=== PATIENT | male | born 1960 | race Caucasian/White ===

== ENCOUNTER 2023-07-11 08:30 | Outpatient (OUT) | payer MEDICARE, SELFPAY ==
--- NOTE | 2023-07-11 08:37 | XR_ITS ---
The [address] [address] Patient Name: ERI KLEIN MRN: [id number] date: 1960 Sex: M Assigned Patient Location: RAD Current Patient Location: [facility] Accession/Order Number: [id number] Exam Date: 07/11/2023 08:45 Report Date: 07/11/2023 09:12 At the request of: DENYS KLEIN Procedure: XR lumbar spine 6V w bending EXAMINATION: XR lumbar spine 6V w bending HISTORY: Spondylosis Of Lumbar Spine, Low Back Pain COMPARISON: 01/25/2022 FINDINGS: BONES: Neutral projection demonstrates normal alignment of the lumbar vertebral bodies with no acute fracture or spondylolisthesis. Moderate diffuse degenerative spondylosis and facet osteoarthropathy DISC SPACES: Multilevel disc space narrowing most significant L4-5 and L5-S1 with endplate sclerosis PARASPINOUS: Negative. No paraspinous abnormality is seen. OTHER: No transient spondylolisthesis with flexion or extension XR/XR lumbar spine 6V w bending IMPRESSION: Moderate degenerative changes with no dynamic instability Electronically authenticated by: ERI ROBERTSON Date: 07/11/2023 09:12
== END 2023-07-11 08:31 | disposition home or self-care (01) ==
PROVIDERS: Visit Provider Internal Medicine
DX: M47.816 Spondylosis without myelopathy or radiculopathy, lumbar region (principal); M54.50 Low back pain, unspecified
CPT/HCPCS: 72114

== ENCOUNTER 2023-07-27 06:32 | Outpatient (OUT) | payer MEDICARE, SELFPAY ==
--- NOTE | 2023-07-27 06:34 | MR_ITS ---
[address] [address] Patient Name: ERI KLEIN MRN: [id number] date: 1960 Sex: M Assigned Patient Location: MRI Current Patient Location: MRI Accession/Order Number: [id number] Exam Date: 07/27/2023 06:45 Report Date: 07/27/2023 09:30 At the request of: DENYS KLEIN Procedure: MR lumbar spine wo con EXAMINATION: MR lumbar spine wo con HISTORY: Low Back Pain, Spondylosis Of Lumbar Spine COMPARISON: No relevant comparison available. TECHNIQUE: A variety of imaging planes and parameters were utilized for visualization of suspected pathology. FINDINGS: For the purposes of numbering, sagittal T2 image # 8 extends from the T11 vertebral body superiorly to the S3 level inferiorly. PARASPINAL AREA: Normal with no visible mass. BONES: Normal alignment with no acute fracture or spondylolisthesis. Moderate degenerative spondylosis. Modic 1 changes inferior L4 superior L5 vertebral bodies. Area of signal abnormality in the T11 likely a hemangioma CORD/CAUDA EQUINA: Normal caliber, contour, and signal intensity. DISC LEVELS: 12-L1: No significant disc/facet abnormality, spinal stenosis, or foraminal stenosis. L1-L2: No significant disc/facet abnormality, spinal stenosis, or foraminal stenosis. L2-L3: Disc desiccation. Mild broad-based disc protrusion. Moderate endplate hypertrophy. No central or foraminal stenosis L3-L4: Disc space narrowing with disc desiccation. Mild diffuse disc/osteophyte complex and facet osteoarthropathy. Regional narrowing of the central canal. Mild bilateral foraminal stenosis, right greater than left L4-L5: Moderate disc space narrowing right greater than left with endplate sclerosis and Modic change. Mild to moderate diffuse disc/osteophyte complex and facet osteoarthropathy. Ligamentum flavum hypertrophy. No central canal stenosis. Moderate bilateral foraminal stenosis L5-S1: Disc desiccation. Mild posterior disc protrusion and facet osteoarthropathy. No central canal or right foraminal stenosis. Moderate narrowing of the left neural foramen MR/MR lumbar spine wo con IMPRESSION: Moderate degenerative changes resulting in central and foraminal stenosis at multiple levels as detailed above Electronically authenticated by: ERI ROBERTSON Date: 07/27/2023 09:30
--- OUTSIDE RECORDS SUMMARY | 2023-07-27 06:35 | XMS_ITS | CCD ---
Author Organization [facility] Care Team Providers Care Motion Picture Cameraman Name Role Phone Casey Klein Unavailable Unavailable Unavailable DR CASEY KLEIN Primary Care Unavailable SHERIF, DR MCFARLANE Admitting Unavailable SHERIF, DR MCFARLANE Attending Unavailable SHERIF, DR MCFARLANE Consulting Unavailable SHERIF, DR MCFARLANE Admitting Unavailable SHERIF, DR MCFARLANE Attending Unavailable SHERIF, DR MCFARLANE Consulting Unavailable SHERIF, DR MCFARLANE Primary Care Unavailable TISHA, DR RENEE Taylor Consulting Unavailable Casey Klein Unavailable Casey Klein DO Primary Care Provider TREMAINE DUQUE Attending Unavailable CASEY KLEIN Primary Care Unavailable Allergies Allergy Classification Reported Allergen(s) Allergy Type Date of Onset Reaction(s) Facility (3 sources) shellfish, unspecified [facility]: (2 sources) Shellfish; Translations: [SHELLFISH DERIVED] Propensity to adverse reactions to food (disorder) 4 Anaphylaxis [facility] 3 Repository Medications Current Medications Medication Drug Class(es) Dates Sig (Normalized) Sig (Original) amLODIPine 5 mg oral tablet (8 sources) Dihydropyridine Calcium Channel Raisa Start: 06-15-2023 take 5 mg by mouth once daily Amlodipine Active 5 MG PO Daily June 15, 2023 12:00am take 1 tablet by mouth once christoph y amLODIPine (Norvasc) 5 mg tablet Take 1 tablet (5 mg) by mouth once daily. 0 Active aspirin 81 mg delayed release oral tablet (6 sources) Platelet Aggregation Inhibitor, Nonsteroidal Anti-inflammatory Drug Start: 06-18-2023 take 81 mg by mouth once daily Aspirin Active 81 MG PO Daily June 18, 2023 12:00am Start: 04-21-2019 End: 06-15-2023 take 81 mg by mouth once daily Aspirin Discontinued 81 MG PO Daily April 21, 2019 12:00am June 15, 2023 4:17pm take 1 tablet by candace th twice daily aspirin 81 mg EC tablet Take 1 tablet (81 mg) by mouth 2 times a day. 0 Active atorvastatin (11 sources) HMG-CoA Reductase Inhibitor Start: 06-04-2023 take 1 tablet by mouth once daily in the evening Atorvastatin Active 0 .ROUTE .COMPLEX 90 June 04, 2023 1:33pm TAKE 1 TABLET BY MOUTH EVERY EVENING Start: 03-19-2020 End: 06-04-2023 take 1 tablet by mouth once daily at bedtime Atorvastatin (Lipitor) 40 mg tablet Discontinued 40 MG PO Daily at bedtime March 19, 2020 1:00am June 04, 2023 1:33pm Start: 04-21-2019 End: 03-19-2020 take 20 mg by mouth once daily Atorvastatin Discontinu ed 20 MG PO Daily April 21, 2019 12:00am March 19, 2020 12:03pm cefdinir 300 mg oral capsule (2 sources) Cephalosporin Antibacterial Start: 03-05-2023 Cefdinir 300 MG as directed Orally bid for 7 days Feb, Active [id number] 0.3 ml EPINEPHrine 1 mg/ml auto-injector (2 sources) alpha-Adrenergic Agonist, beta-Adrenergic Agonist, Catecholamine Start: 09-01-2021 EPINEPHrine (Auvi-Q) 0.3 mg/0.3 mL injection syringe INJECT NEEDED FOR SEVERE ALLERGIC REACTION INCLUDING ANAPHYLAXIS DIRECTED 0 09/01/2021 Active multivit-min/ferrou s fumarate (MULTI VITAMIN ORAL) (1 source) take 1 tablet by mouth once daily multivit-min/fransico us fumarate (MULTI VITAMIN ORAL) Take 1 tablet by mouth once daily. 0 Active Multivitamin (Daily Multi-Vitamin) tablet (1 source) Start: 06-18-2023 take 1 tablet by mouth once daily Multivitamin (Daily Multi-Vitamin) tablet Active 1 TAB PO Daily June 18, 2023 12:00am Completed/Discontinued Medications Medication Drug Class(es) Dates Sig (Normalized) Sig (Original) plenvu 140 gm solution reconstituted (4 sources) Osmotic Laxative, Vitamin C Start: 03-21-2019 Plenvu 140 GM DOSE 1 AT 4 AND DOSE 2 POUCH A AND B AT 11 PM Orally bid for 1 days [id number] PCN: [id number] GROUP:[id number] ID:[id number] Mar, Not-Taking/PRN Start: 03-21-2019 Plenvu 140 GM DOSE 1 AT 4 AND DOSE 2 POUCH A AND B AT 11 PM Orally bid for 1 days BIN:[id number] PCN: [id number] GROUP:[id number] ID:[id number] Mar, Not-Taking benzonatate 100 mg oral capsule (4 sources) Non-narcotic Antitussive Start: 06-15-2023 End: 06-18-2023 take 100 mg by mouth three times daily Benzonatate Discontinued 100 MG PO Three times daily June 15, 2023 12:00am June 18, 2023 10:33am Start: 02-18-2023 take 1 capsule by mo [facility] every eight hours Benzonatate 100 MG 1 capsule as needed Orally Three times a day for 10 days Feb, Active doxycycline hyclate 100 mg oral capsule (3 sources) Tetracycline-class Drug Start: 02-18-2023 take 1 capsule by mouth every twelve hours Doxycycline Hyclate 100 MG 1 capsule Orally Twice a day for 5 days Feb, Not-Taking/PRN Emergen-C Immune Plus Oral Packet (1 source) Emergen-C Immune Plus Oral Packet TAKE DIRECTED. Quantity: 0 Refills: 0 Ordered: 24-Mar-2022 DO Active lisinopril 10 mg oral tablet (1 source) Angiotensin Converting Enzyme Inhibitor Start: 04-21-2019 End: 06-15-2023 take 10 mg by mouth once daily Lisinopril Discontinued 10 MG PO Daily April 21, 2019 12:00am June 15, 2023 4:17pm Multi Vitamin Oral Tablet (1 source) take 1 tablet by mouth once daily Multi Vitamin Oral Tablet TAKE 1 TABLET DAILY. Quantity: 0 Refills: 0 Ordered: 05-Sep-2021 DO Active naproxen sodium 220 mg oral tablet (1 source) Nonsteroidal Anti-inflammatory Drug Start: 03-17-2020 End: 06-15-2023 take 2 tablets by mouth twice daily Naproxen Sodium (Aleve) 220 mg Tablet Discontinued 440 MG PO Twice daily March 17, 2020 1:00am June 15, 2023 4:17pm nitroglycerin 0.4 mg sublingual tablet (1 source) Nitrate Vasodilator Start: 03-19-2020 End: 06-15-2023 Nitroglycerin Discontinued 0.4 MG SUBLINGUAL Q5M March 19, 2020 1:00am June 15, 2023 4:17pm Suprep Bowel Prep - (4 sources) Start: 02-23-2016 Suprep Bowel Prep - 1 Orally Twice a day for 1 day(s) Feb, Not-Taking/PRN Start: 02-23-2016 Suprep Bowel P rep - 1 Orally Twice a day for 1 day(s) Feb, Not-Taking Problems Problem Classification Problem Date Documented Date Episodic/Chronic Acute bronchitis (2 sources) Acute bronchitis due to other specified organisms Episodic Coronary atherosclerosis and other heart disease (9 sources) Coronary arteriosclerosis; Translations: [Coronary atherosclerosis of unspecified type of vessel, nenana or graft] Onset: 02-23-2023 04-04-2023 Chronic Disorders of lipid metabolism (10 sources) Hyperlipidemia; Translations: [Other and unspecified hyperlipidemia] Onset: 02-23-2023 04-04-2023 Chronic Essential hypertension (10 sources) Essential hypertension; Translations: [Unspecified essential hypertension] Onset: 02-23-2023 04-04-2023 Chronic Nonspecific chest pain (1 source) Chest pain; Translations: [Chest pain, unspecified] 01-24-2023 Episodic Other and unspecified benign neoplasm (1 source) Personal history of colonic polyps; Translations: [History of colon polyps] Episodic Other and unspecified benign neoplasm (4 sources) History of polyp of colon; Translations: [Personal history of colonic polyps] 01-24-2023 Episodic Other nutritional; endocrine; and metabolic disorders (1 source) Obesity; Translations: [Obesity, unspecified] Chronic Other nutritional; endocrine; and metabolic disorders (2 sources) Overweight in adulthood with body mass index of 25 or more but less than 30; Translations: [Overweight] Episodic Other screening for suspected conditions (not mental disorders or infectious disease) (2 sources) Encounter for screening for malignant neoplasm of prostate; Translations: [Screening for malignant neoplasms of prostate] Onset: 02-01-2022 06-18-2023 Episodic Residual codes; unclassified (2 sources) Never smoked tobacco; Translations: [Other specified health status] Onset: 04-04-2023 04-04-2023 Episodic Residual codes; unclassified (2 sources) Other specified health status; Translations: [Other specified health status] Onset: 04-04-2023 Episodic Screening and history of mental health and substance abuse codes (3 sources) Ex-smoker; Translations: [Personal history of tobacco use] Episodic Comment on above: in colllege - light smoker.; Spondylosis; intervertebral disc disorders; other back problems (6 sources) Spondylosis without myelopathy or radiculopathy, lumbar region; Translations: [Lumbar spondylosis] Onset: 01-25-2022 Chronic Spondylosis; intervertebral disc disorders; other back problems (1 source) Low back pain; Translations: [Low back pain] 06-18-2023 Episodic Sprains and strains (1 source) Strain of unspecified muscle(s) and tendon(s) at lower leg level, left leg, initial encounter Episodic Results Test Name Value Interpretation Reference Range Facil ity Tobacco Screening.on 023 Adult depression screening assessment No [facility] [employer] DO Work Phone: Fall risk assessment c) Not medically indicated [facility] [employer] DO Work Phone: Tobacco use status [facility] b) No [facility] [employer] DO Work Phone: CBC AUTO DIFFon 01-27-2022 BASO # 0.0 103/ul Normal 0.0-0.1 [facility] Comment on above: Performed By: #### C BC #### [facility] [address] [place] [address] Dr. Viri Remy Basophils/100 WBC (Bld) 0.6 % Normal 0.2-2.0 [facility] Comment on above: Performed By: #### C BC #### [facility] [address] [address] [address] Viri Remy EO # 0.1 103/ul Normal 0.0-0.7 [facility] Comment on above: Performed By: #### C BC #### [facility] [address] [address] [address] Viri Remy Eosinophils/100 WBC (Bld) 1.3 % Normal 0.9-7.0 [facility] Comment on above: Performed By: #### C BC #### [facility] [address] [place] [address] Dr. Viri Remy Erythrocyte distribution width (RBC) [Ratio] 12.6 % Normal 11.0-15.0 [facility] Comment on above: Performed By: #### C BC #### [facility] [address] [place] [address] Dr. Viri Remy Hematocrit (Bld) [Volume fraction] 49.3 % Normal 42.0-54.0 [facility] Comment on above: Performed By: #### C BC #### [facility] [address] [place] [address] Dr. Viri Remy Hemoglobin (Bld) [Mass/Vol] 16.7 g/dL Normal 14.0-18.0 [facility] Comment on above: Performed By: #### C BC #### [facility] [address] [place] [address] Dr. Viri Remy IG # 0.01 10e3/ul Normal 0.00-0.03 [facility] Comment on above: Performed By: #### C BC #### [facility] [address] [place] [address] Dr. Viri Remy IG % 0.1 % Normal 0.0-0.5 [facility] Comment on above: Performed By: #### C BC #### [facility] [address] [place] [address] Dr. Viri Remy LYMPH # 2.1 103/ul Normal 1.2-3.8 [facility] Comment on above: Performed By: #### C BC #### [facility] [address] [place] [address] Dr. Viri Remy Lymphocytes/100 WBC (Bld) 29.3 % Normal 20.5-60.0 [facility] Comment on above: Performed By: #### C BC #### [facility] [address] [place] [address] Dr. Viri Remy MANUAL DIFF REQ NO Normal [facility] Comment on above: Performed By: #### C BC #### [facility] [address] [place] [address] Dr. Viri Remy MCH (RBC) [Entitic mass] 29.9 pg Normal 25.9-34.0 [facility] Comment on above: Performed By: #### C BC #### [facility] [address] [place] [address] Dr. Viri Remy MCHC (RBC) [Mass/Vol] 33.9 g/dL Normal 29.9-35.2 [facility] Comment on above: Performed By: #### C BC #### [facility] [address] [place] [address] Dr. Viri Remy MCV (RBC) [Entitic vol] 88.4 fL Normal 80.0-94.0 [facility] Comment on above: Performed By: #### C BC #### [facility] [address] [place] [address] Dr. Viri Remy MONO # 0.6 103/ul Normal 0.3-0.8 [facility] Comment on above: Performed By: #### C BC #### [facility] [address] [place] [address] Dr. Viri Remy Monocytes/100 WBC (Bld) 7.9 % Normal 1.7-12.0 [facility] Comment on above: Performed By: #### C BC #### [facility] [address] [place] [address] Dr. Viri Remy NEUT # 4.3 103/ul Normal 1.4-6.5 [facility] Comment on above: Performed By: #### C BC #### [facility] [address] [place] [address] Dr. Viri Remy Neutrophils/100 WBC (Bld) 60.8 % Normal 43.0-75.0 [facility] Comment on above: Performed By: #### C BC #### [facility] [address] [place] [address] Dr. Viri Remy Platelet mean volume (Bld) [Entitic vol] 9.9 fL Normal 9.5-13.5 [facility] Comment on above: Performed By: #### C BC #### [facility] [address] [address] [address] Viri Remy PLT 251 103/ul Normal 150-450 [facility] Comment on above: Performed By: #### C BC #### [facility] [address] [address] [address] Viri Remy RBC 5.58 106/ul Normal 4.70-6.10 [facility] Comment on above: Performed By: #### C BC #### [facility] [address] [address] [address] Viri Remy WBC 7.0 103/ul Normal 4.0-11.0 [facility] Comment on above: Performed By: #### C BC #### [facility] [address] [place] [address] Dr. Viri Remy LIPID PROFILEon 01-27-2022 CHOL-HDL RATIO NORM SEE BELOW Normal [facility] Comment on above: Result Comment: 3.3 - 4.4 LOW RISK 4.4 - 7.1 AVERAGE RISK 7.1 - 11.0 MODERATE RISK >11.0 HIGH RISK Performed By: #### L IPID, CMP #### [facility] [address] [place] [address] Dr. Viri Remy Cholesterol [Mass/Vol] 147 mg/dL Normal <=200 [facility] Comment on above: Performed By: #### L IPID, CMP #### [facility] [address] [place] [address] Dr. Viri Remy Cholesterol in HDL [Mass/Vol] 71 mg/dL Critically high 40-60 [facility] Comment on above: Performed By: #### L IPID, CMP #### [facility] [address] [address] [address] Viri Remy Cholesterol in LDL [Mass/Vol] 41.6 mg/dL Normal [facility] Comment on above: Performed By: #### L IPID, CMP #### [facility] [address] [place] [address] Dr. Viri Remy Cholesterol.total/ Cholesterol in HDL [Mass ratio] 2.1 {ratio} Normal [facility] Comment on above: Performed By: #### L IPID, CMP #### [facility] [address] [address] [address] Viri Remy HDL NORMAL > or = 60 mg/dl - LO W CARDIOVASCULAR RISK <40 mg/dl - HIGH CARDIOVASCULAR RISK Normal [facility] Comment on above: Performed By: #### L IPID, CMP #### [facility] [address] [address] [address] Viri Remy LDL CALC NORMAL SEE BELOW Normal [facility] Comment on above: Result Comment: <100 mg/dl OPTIMAL 100 - 129 mg/dl NEAR OR ABOVE OPTIMAL 130 - 159 mg/dl BORDERLINE HIGH 160 - 189 mg/dl HIGH >190 mg/dl VERY HIGH Performed By: #### L IPID, CMP #### [facility] [address] [place] [address] Dr. Viri Remy Triglyceride [Mass/Vol] 172 mg/dL Critically high <=150 [facility] Comment on above: Performed By: #### L IPID, CMP #### [facility] [address] [address] [address] Viri Remy VLDL CALC 34.4 mg/dL Normal [facility] Comment on above: Performed By: #### L IPID, CMP #### [facility] [address] [place] [address] Dr. Viri Remy PROF 14(COMP METB)on 022 Albumin [Mass/Vol] 4.1 g/dL Normal 3.4-5.0 [facility] Comment on above: Performed By: #### L IPID, CMP #### [facility] [address] [place] [address] Dr. Viri Remy Albumin/Globulin [Mass ratio] 1.2 {ratio} Normal [facility] Comment on above: Performed By: #### L IPID, CMP #### [facility] [address] [address] [address] Viri Remy ALP [Catalytic activity/Vol] 63 U/L Normal 46-116 [facility] Comment on above: Performed By: #### L IPID, CMP #### [facility] [address] [address] [address] Viri Remy ALT [Catalytic activity/Vol] 52 U/L Normal 16-63 [facility] Comment on above: Performed By: #### L IPID, CMP #### [facility] [address] [address] [address] Viri Remy Anion gap [Moles/Vol] 10.8 mmol/L Normal [facility] Comment on above: Performed By: #### L IPID, CMP #### [facility] [address] [address] [address] Viri Remy AST [Catalytic activity/Vol] 26 U/L Normal 15-37 [facility] Comment on above: Performed By: #### L IPID, CMP #### [facility] [address] [place] [address] Dr. Viri Remy Bilirubin [Mass/Vol] 1.6 mg/dL Critically high 0.2-1.0 [facility] Comment on above: Performed By: #### L IPID, CMP #### [facility] [address] [place] [address] Dr. Viri Remy Calcium [Mass/Vol] 9.2 mg/dL Normal 8.5-10.1 [facility] Comment on above: Performed By: #### L IPID, CMP #### [facility] [address] [place] [address] Dr. Viri Remy Chloride [Moles/Vol] 104 mmol/L Normal 98-107 [facility] Comment on above: Performed By: #### L IPID, CMP #### [facility] [address] [address] [address] Viri Remy CO2 [Moles/Vol] 30.1 mmol/L Normal 21.0-32.0 [facility] Comment on above: Performed By: #### L IPID, CMP #### [facility] [address] [place] [address] Dr. Viri Remy Creatinine [Mass/Vol] 1.02 mg/dL Normal 0.70-1.30 [facility] Comment on above: Performed By: #### L IPID, CMP #### [facility] [address] [address] [address] Viri Remy EGFR-AF IVORIAN >60 Normal >=60 [facility] Comment on above: Performed By: #### L IPID, CMP #### [facility] [address] [address] [address] Viri Remy EGFR-NON AF IVORIAN >60 Normal >=60 [facility] Comment on above: Performed By: #### L IPID, CMP #### [facility] [address] [address] [address] Viri Remy Globulin (S) [Mass/Vol] 3.4 g/dL Normal [facility] Comment on above: Performed By: #### L IPID, CMP #### [facility] [address] [address] [address] Viri Remy Glucose [Mass/Vol] 90 mg/dL Normal 74-106 [facility] Comment on above: Performed By: #### L IPID, CMP #### [facility] [address] [address] [address] Viri Remy Potassium [Moles/Vol] 3.9 mmol/L Normal 3.5-5.1 [facility] Comment on above: Performed By: #### L IPID, CMP #### [facility] [address] [address] [address] Viri Remy Protein [Mass/Vol] 7.5 g/dL Normal 6.4-8.2 [facility] Comment on above: Performed By: #### L IPID, CMP #### [facility] [address] [address] [address] Viri Remy Sodium [Moles/Vol] 141 mmol/L Normal 136-145 [facility] Comment on above: Performed By: #### L IPID, CMP #### [facility] [address] [address] [address] Viri Remy Urea nitrogen [Mass/Vol] 15.0 mg/dL Normal 7.0-18.0 [facility] Comment on above: Performed By: #### L IPID, CMP #### [facility] [address] [address] [address] Viri Remy Urea nitrogen/Creatinin e [Mass ratio] 14.7 mg/mg Normal [facility] Comment on above: Performed By: #### L IPID, CMP #### [facility] [address] [place], [place] [address] Dr. Viri Remy XR LSPINE W_OBLS AND FLEX_EX Ton 01-26-2022 XR LSPINE W_OBLS AND FLEX_EXT EXAMINATION: XR LSPINE W_OBLS AND FLEX_EXT HISTORY: Spondylosis without myelopathy ; chronic low back pain COMPARISON: No relevant comparison available. FINDINGS: BONES: 2-3 mm retrolisthesis of L1 on 2, L2 on 3, L3 on 4 without significant change between neutral, flexion, extension. Moderate degenerative facet arthropathy L4-L5, L5-S1. No fracture or bone lesion. DISC SPACES: Moderate marked narrowing L4-L5, L5-S1. Mild narrowing L2-L3, L3-L4. PARASPINOUS: Negative. No paraspinous abnormality is seen. OTHER: Negative. IMPRESSION: 1. Multilevel degenerative changes with moderate-marked degenerative disc disease L4-L5 and L5-S1. Electronically authenticated by: RENEE GILES Date: 2022-01-26 06:14 Normal [facility] Office Visit (Cardiology)on 09-05-2021 Follow-up visit Diagnoses/Problems Assessed Coronary artery disease (414.00) (I25.10) Essential hypertension (401.9) (I10) Hyperlipidemia (272.4) (E78.5) Former smoker (V15.82) (Z87.891) in colllege - light smoker. Overweight with body mass index (BMI) of 29 to 29.9 in adult (278.02,V85.25) (E66.3,Z68.29) Orders Overweight with body mass index (BMI) of 29 to 29.9 in adult Healthy Weight Tips; Status:Complete; Done: [id number] Some eating tips that can help you lose weight.; Status:Complete; Done: [id number] SocHx: Former smoker Tobacco Use Screening; Status:Complete; Done: [id number] Patient Instructions Please bring all medicines, vitamins, and herbal supplements with you when you come to the office. Prescriptions will not be filled unless you are compliant with your follow up appointments or have a follow up appointment scheduled as per instruction of your physician. Refills should be requested at the time of your visit Follow up in 6 months Chief Complaint ERI KLEIN is being seen for a 6 month follow-up of. History of Present Illness Patient returns in follow-up of problems as noted. Is doing well. He denies angina CHF or arrhythmia symptomatology and is tolerating medical therapy and risk factor modification, lipids and blood pressure, well. Because of this we feel he is doing well we suggest continued therapy as is. Educated regarding symptoms watch for and encouraged to call if they arise or occur. Current Meds Medication NameInstruction amLODIPine Besylate 5 MG Oral TabletTAKE 1 TABLET DAILY. Aspirin EC 81 MG Oral Tablet Delayed ReleaseTake 1 tablet twice daily Atorvastatin Calcium 40 MG Oral TabletTAKE 1 TABLET AT BEDTIME. Auvi-Q 0.3 MG/0.3ML Injection Solution Auto-injectorINJECT NEEDED FOR SEVERE ALLERGIC REACTION INCLUDING ANAPHYLAXIS DIRECTED Multi Vitamin Oral TabletTAKE 1 TABLET DAILY. Allergies Medication No Known Drug Allergies Recorded By: Kateryna Landaverde; 01/11/2021 7:39:03 AM NonMedication Shellfish Recorded By: Kateryna Landaverde; 01/11/2021 7:39:03 AM Social History Problems Alcohol use (V49.89) (Z72.89) Caffeine use (V49.89) (Z78.9) Tea/Pop decaf occasional Former smoker (V15.82) (Z87.891) in colllege - light smoker. No illicit drug use Review of Systems Constitutional: not feeling tired. Eyes: no eyesight problems. ENT: no hearing loss and no nosebleeds. Cardiovascular: no intermittent leg claudication and as noted in HPI. Respiratory: no chronic cough and no shortness of breath. Gastrointestinal: no change in bowel habits and no blood in stools. Genitourinary: no urinary frequency and no hematuria. Skin: no skin rashes. Neurological: no seizures and no frequent falls. Psychiatric: no depression and not suicidal. All other systems have been reviewed and are negative for complaint. Vitals Vital Signs Recorded: [id number] 03:22PM Heart Rate72, L Radial [id number], LUE, Sitting [id number], LUE, Sitting Height5 ft 11 in [id number] lb 6.4 oz BMI Apevnjqclm39.9 kg/m2 BSA Calculated2.17 Tobacco Useb) No PHQ-2 #1. Over the last 2 weeks have you felt down, depressed or hopeless? (If yes, answer PHQ-9 below)No PHQ-2 #2. Over the last 2 weeks have you felt little interest or pleasure in doing things? (If yes, answer PHQ-9 below)No Physical Exam Constitutional: alert and in no acute distress. Eyes: no erythema, swelling or discharge from the eye . Neck: neck is supple, symmetric, trachea midline, no masses and no thyromegaly . Pulmonary: no increased work of breathing or signs of respiratory distress and lungs clear to auscultation. Cardiovascular: carotid pulses 2+ bilaterally with no bruit , JVP was normal, no thrills , regular rhythm, normal S1 and S2, no murmurs , pedal pulses 2+ bilaterally and no edema . Abdomen: abdomen non-tender, no masses and no hepatomegaly . Skin: skin warm and dry, normal skin turgor . Psychiatric judgment and insight is normal and oriented to person, place and time . Signatures Electronically signed by : Tremaine Duque MD; Sep 05 2021 5:24PM EST (Author) Normal [facility] Office Visit (Cardiology)on 01-24-2021 Follow-up visit Diagnoses/Problems Assessed Coronary artery disease (414.00) (I25.10) Essential hypertension (401.9) (I10) Hyperlipidemia (272.4) (E78.5) Overweight with body mass index (BMI) of 27 to 27.9 in adult (278.02,V85.23) (E66.3,Z68.27) Former smoker (V15.82) (Z87.891) in colllege - light smoker. Orders Coronary artery disease Renew: Aspirin EC 81 MG Oral Tablet Delayed Release; Take 1 tablet twice daily Overweight with body mass index (BMI) of 27 to 27.9 in adult Healthy Weight Tips; Status:Complete - Retrospective Authorization; Done: [id number] SocHx: Former smoker Tobacco Use Screening; Status:Complete; Done: [id number] Follow up in 1 year continue current medication patient educated on recognizing signs and symptoms Patient Instructions By signing my name below, I, Kendra Zaldivar LPN, attest that this documentation has been prepared under the direction and in the presence of Dr. Tremaine Duque MD. All medical record entries made by the Kendra were at my direction and personally dictated by me. I have reviewed the chart and agree that the record accurately reflects my personal performance of the history, physical exam, discussion and plan. Please bring all medicines, vitamins, and herbal supplements with you when you come to the office. Prescriptions will not be filled unless you are compliant with your follow up appointments or have a follow up appointment scheduled as per instruction of your physician. Refills should be requested at the time of your visit. Chief Complaint ERI KLEIN is being seen for a 6 month follow-up of. History of Present Illness Patient returns in follow-up of problems as noted. He is doing well. He is exercising regularly without anginal discomfort. We discussed and explained in tremendous detail the characteristics of angina to watch for and he is having no such symptomatology. Because of this we believe his coronary disease to be stable. Control and treatment of his risk factors including hypertension and hyperlipidemia is reviewed and felt to be adequate and appropriate. Again the merits of diet lifestyle modification exercise and weight loss were advocated. Surgical History Problems History of Complete colonoscopy History of Dermatological surgery History of Hernia repair History of Hip replacement right Current Meds Medication NameInstruction amLODIPine Besylate 5 MG Oral TabletTAKE 1 TABLET DAILY. Aspirin EC 81 MG Oral Tablet Delayed ReleaseTake 1 tablet twice daily Atorvastatin Calcium 40 MG Oral TabletTAKE 1 TABLET AT BEDTIME. Allergies Medication No Known Drug Allergies Recorded By: Kateryna Landaverde; 01/11/2021 7:39:03 AM NonMedication Shellfish Recorded By: Kateryna Landaverde; 01/11/2021 7:39:03 AM Social History Problems Alcohol use (V49.89) (Z72.89) Caffeine use (V49.89) (Z78.9) Tea/Pop decaf occasional Former smoker (V15.82) (Z87.891) in colllege - light smoker. No illicit drug use Review of Systems Constitutional: not feeling tired. Eyes: no eyesight problems. ENT: no hearing loss and no nosebleeds. Cardiovascular: no intermittent leg claudication and as noted in HPI. Respiratory: no chronic cough and no shortness of breath. Gastrointestinal: no change in bowel habits and no blood in stools. Genitourinary: no urinary frequency and no hematuria. Skin: no skin rashes. Neurological: no seizures and no frequent falls. Psychiatric: no depression and not suicidal. All other systems have been reviewed and are negative for complaint. Vitals Vital Signs Recorded: [id number] 06:02PMRecorded: [id number] 10:07AM Fbinhlus225, RUE, Zoivilr825, LUE, Sitting Trnpaatpj50, RUE, Jnujwnn39, LUE, Sitting Heart Rate89, L Radial Height6 ft Nmlynx672 lb BMI Pdyahotsre74.94 kg/m2 BSA Calculated2.16 Tobacco Useb) No Physical Exam Constitutional: alert and in no acute distress. Eyes: no erythema, swelling or discharge from the eye . Neck: neck is supple, symmetric, trachea midline, no masses and no thyromegaly . Pulmonary: no increased work of breathing or signs of respiratory distress and lungs clear to auscultation. Cardiovascular: carotid pulses 2+ bilaterally with no bruit , JVP was normal, no thrills , regular rhythm, normal S1 and S2, no murmurs , pedal pulses 2+ bilaterally and no edema . Abdomen: abdomen non-tender, no masses and no hepatomegaly . Skin: skin warm and dry, normal skin turgor . Psychiatric judgment and insight is normal and oriented to person, place and time . Signatures Electronically signed by : Tremaine Duque MD; Jan 24 2021 6:04PM EST (Author) Normal [facility] Tobacco Screening.on 021 Tobacco use status [facility] b) No [facility] 250 DO Work Phone: Vital Signs Date Time Vital Sign Value Performing Clinician Facility 06-18-2023 10:35-0400 Body height 180.34 cm [facility] 06-18-2023 10:35-0400 Body mass index (BMI) [Ratio] 31.5 kg/m2 [facility] 06-18-2023 10:35-0400 Body weight 102.56 kg [facility] 06-18-2023 10:35-0400 Diastolic blood pressure 89 mm[Hg] [facility] 06-18-2023 10:35-0400 Heart rate 69 /min [facility] 06-18-2023 10:35-0400 Respiratory rate 12 /min [facility] 06-18-2023 10:35-0400 Systolic blood pressure 133 mm[Hg] [facility] 04-04-2023 12:44-0500 Body height 182.9 cm Tremaine Duque MD Work Phone: [facility] 04-04-2023 12:44-0500 Body mass index (BMI) [Ratio] 30.92 kg/m2 Tremaine Duque MD Work Phone: [facility] 04-04-2023 12:44-0500 Body weight 103.42 kg Tremaine Duque MD Work Phone: [facility] 04-04-2023 12:44-0500 Diastolic blood pressure 82 mm[Hg] Tremaine Duque MD Work Phone: [facility] 04-04-2023 12:44-0500 Heart rate 62 /min Tremaine Duque MD Work Phone: [facility] 04-04-2023 12:44-0500 Systolic blood pressure 128 mm[Hg] Tremaine Duque MD Work Phone: [facility] 03-05-2023 14:00-0500 Body height 180.34 cm Casey Ball Other [facility] Other 03-05-2023 14:00-0500 Body mass index (BMI) [Ratio] 31.91 kg/m2 Casey Ball Other [facility] Other 03-05-2023 14:00-0500 Body weight 103.78 kg Casey Ball Other [facility] Other 03-05-2023 14:00-0500 Diastolic blood pressure 76 mm[Hg] Casey Ball Other [facility] Other 03-05-2023 14:00-0500 Respiratory rate 12 /min Casey Ball Other [facility] Other 03-05-2023 14:00-0500 Systolic blood pressure 119 mm[Hg] Casey Ball Other [facility] Other 10-06-2022 09:45-0400 Body height 180.34 cm Casey Ball Other [facility] Other 10-06-2022 09:45-0400 Body mass index (BMI) [Ratio] 30.96 kg/m2 Casey Ball Other [facility] Other 10-06-2022 09:45-0400 Body weight 100.7 kg Casey Ball Other [facility] Other 10-06-2022 09:45-0400 Diastolic blood pressure 81 mm[Hg] Casey Ball Other [facility] Other 10-06-2022 09:45-0400 Respiratory rate 12 /min Casey Ball Other [facility] Other 10-06-2022 09:45-0400 Systolic blood pressure 126 mm[Hg] Casey Ball Other [facility] Other 03-24-2022 13:54-0500 Body height 182.88 cm Casey E Ball Work Phone: [facility] [place] 250 DO Work Phone: 03-24-2022 13:54-0500 Body mass index (BMI) [Ratio] 30.11 kg/m2 Casey E Ball Work Phone: [facility] [place] 250 DO Work Phone: 03-24-2022 13:54-0500 Body surface area Derived from formula 2.23 m2 Casey E Ball Work Phone: [facility] 250 DO Work Phone: 03-24-2022 13:54-0500 Body weight 100.7 kg Casey Acuña Ball Work Phone: [facility] 250 DO Work Phone: 03-24-2022 13:54-0500 Diastolic blood pressure 58 mm[Hg] Casey Acuña Ball Work Phone: [facility] 250 DO Work Phone: 03-24-2022 13:54-0500 Heart rate 72 /min Casey Acuña Ball Work Phone: [facility] 250 DO Work Phone: 03-24-2022 13:54-0500 Systolic blood pressure 102 mm[Hg] Casey Acuña Ball Work Phone: [facility] 250 DO Work Phone: 01-24-2021 18:02-0500 Diastolic blood pressure 88 mm[Hg] Casey Acuña Ball Work Phone: [facility] 250 DO Work Phone: 01-24-2021 18:02-0500 Systolic blood pressure 137 mm[Hg] Casey Acuña Ball Work Phone: [facility] 250 DO Work Phone: 01-24-2021 10:07-0500 Body height 182.88 cm Casey Acuña Ball Work Phone: [facility] 250 DO Work Phone: 01-24-2021 10:07-0500 Body mass index (BMI) [Ratio] 27.94 kg/m2 Casey E Ball Work Phone: [facility] 250 DO Work Phone: 01-24-2021 10:07-0500 Body surface area Derived from formula 2.16 m2 Casey E Ball Work Phone: [facility] 250 DO Work Phone: 01-24-2021 10:07-0500 Body weight 93.44 kg Casey Klein Work Phone: [facility] 250 DO Work Phone: 01-24-2021 10:07-0500 Diastolic blood pressure 94 mm[Hg] Casey Klein Work Phone: [facility] 250 DO Work Phone: 01-24-2021 10:07-0500 Heart rate 89 /min Casey Klein Work Phone: [facility] 250 DO Work Phone: 01-24-2021 10:07-0500 Systolic blood pressure 137 mm[Hg] Casey Klein Work Phone: [facility] 250 DO Work Phone: Encounters Encounter Date Encounter Type Care Provider Facility Start: 06-18-2023 End: 06-18-2023 ambulatory [facility] Work Phone: Start: 06-18-2023 End: 06-18-2023 Encounter for general adult medical examination without abnormal findings [facility] Start: 06-18-2023 End: 06-18-2023 Patient encounter procedure [facility] Work Phone: Start: 04-04-2023 End: 04-04-2023 ambulatory TREMAINE DUQUE [facility] Start: 04-04-2023 End: 04-04-2023 Office outpatient visit 15 minutes Tremaine Duque MD Work Phone: [facility] Comment on above: Coronary artery dise ase involving nenana coronary artery of nenana heart without angina pectoris (Primary Dx); Essential hypertension; Mixed hyperlipidemia; Never smoked tobacco Start: 03-05-2023 End: 03-05-2023 ambulatory Casey Klein Other [facility] Other Start: 03-05-2023 Patient encounter procedure Casey Klein [facility] Start: 03-05-2023 Telephone encounter Casey Klein [place] [facility] Start: 02-18-2023 End: 02-18-2023 ambulatory Casey [facility] Other [facility] Other Start: 02-18-2023 Telephone encounter Casey Klein [place] [facility] Start: 10-06-2022 End: 10-06-2022 ambulatory Casey Klein Other [facility] Other Start: 10-06-2022 Patient encounter procedure Casey Klein [facility] Start: 03-24-2022 Office outpatient vi sit 25 minutes Casey Klein [facility] Work Phone: Start: 02-01-2022 Encounter for genera l adult medical examination without abnormal findings DR CASEY KLEIN [facility] Start: 01-27-2022 End: 01-28-[address] CASEY KLEIN Facility:[facility] Start: 01-27-2022 End: 01-28-2022 Encounter for general adult medical examination without abnormal findings DR CASEY KLEIN Facility:[facility] Start: 01-25-2022 End: 01-26-[address] CASEY KLEIN Facility:[facility] Start: 01-24-2021 Office outpatient vi sit 15 minutes Casey Klein Work Phone: [facility] 250 DO Work Phone: Procedures Date Procedure Procedure Detail Performing Clinician Start: 01-27-[address] KEO KLEIN Comment on above: Performed By: #### P [facility] #### [facility] [address] [place] [address] Dr. Viri Remy Start: 02-13-2020 Total colonoscopy Sanjay darshan Klein Work Phone: Hernia repair Casey bermudez Work Phone: Operation on skin Casey Klein Work Phone: Prosthetic arthropla sty of the hip Casey Klein Work Phone: Comment on above: right; Total replacement of hip Dmitriy Klein Work Phone: Comment on above: right; Plan of Treatment Date Care Activity Detail Author Start: 04-04-2023 FUV, Provider: Tremaine Duque, Status: Pen, Time: 1:00 PM FUV, Provider: Tremaine Duque, Status: Pen, Time: 1:00 PM [facility] Work Phone: Start: 10-13-2022 COVID-19 Vaccine ( season) COVID-19 Vaccine () [facility] Start: 10-13-2022 Influenza vaccination Influenza Vaccine (#1) [facility] Start: 08-05-2021 FUV, Provider: Tremaine Duque, Status: Pen, Time: 2:00 PM FUV, Provider: Tremaine Duque, Status: Pen, Time: 2:00 PM [facility] Work [facility]: Start: 2008 Zoster Vaccines (1 of 2) Zoster Vaccines (1 of 2) [facility] Start: 1980 DTaP/Tdap/Td Vaccines (1 - Tdap) DTaP/Tdap/Td Vaccines (1 - Tdap) [facility] Start: 1976 Hepatitis C screening Hepatitis C Screening [facility] Start: 1964 Pneumococcal Vaccine: 65+ Years (1 - PCV) Pneumococcal Vaccine: 65+ Years (1 - PCV) [facility] Start: 1964 Pneumococcal Vaccine: Pediatrics (0 to 5 Years) and At-Risk Patients (6 to 64 Years) (1 - PCV) Pneumococcal Vaccine: Pediatrics (0 to 5 Years) and At-Risk Patients (6 to 64 Years) (1 - PCV) [facility] Start: 05-20-1959 MMR Vaccines (1 of 1 - Standard series) MMR Vaccines (1 of 1 - Standard series) [facility] Start: 1958 HIV screening HIV Screening [facility] Start: 1958 Lipid panel Lipid Panel [facility] Start: 1958 Screening for malignant neoplasm of colon [facility] Start: 1958 Yearly Adult Physical Yearly Adult Physical [facility] XR Lumbar spine Views [facility] Immunizations Immunization Date Immunization Notes Care Provider Fa gabe 11-19-2020 Pfizer-BioNTech COVID-19 Vacc 30 MCG/0.3ML Intramuscular Suspension Casey Klein [facility] Work Phone: 10-29-2020 Pfizer-BioNTech COVID-19 Vacc 30 MCG/0.3ML Intramuscular Suspension Casey Klein Work Phone: [place] [address] DO Work Phone: 11-20-2018 influenza virus vaccine, split virus (incl. purified surface antigen) Casey Klein Other [facility] Other 11-20-2018 influenza virus vaccine, unspecified formulation [facility] 02-12-2018 influenza, seasonal, injectable Casey Klein Work Phone: [place] [address] DO Work Phone: 02-12-2018 influenza virus vaccine, unspecified formulation Tremaine Duque MD Work Phone: [facility] Work Phone: Payers Date Payer Category Payer Private Health Insurance [employer] [facility] [id number] 2023-Present [address] [place] [address] [id number] 2023 Private Health Insurance [id number] 1961 Unknown [id number] 1958 Unknown [id number] 1958 Unknown [id number] 1958 Unknown [id number] Medicare AARP Medicare Ad vantage PFFS [id number] Private Health Insurance [id number] Self-pay Self Pay [id number] [facility] Social History Date Type Detail Facility Start: 02-23-2023 [facility] DO Work Phone: Comment on above: Tea/Pop decaf occasi onal; in colllege - light smoker.; Start: 02-23-2023 Sex Assigned At N [facility] Other Start: 03-17-2020 End: 04-04-2023 Tobacco smoking status NHIS Never smoked tobacco [facility] Start: 04-04-2023 Alcohol intake Current drinke r of alcohol (finding) [facility] Work Phone: Start: 1960 Sex Assigned At Not on file [facility] Work Phone: Start: 03-25-2023 End: 04-04-2023 Exposure to SARS-CoV-2 (event) Not sure [facility] Start: 1960 Sex Assigned At Male F [facility] Clinical Notes 10-06-2022 to 04-04-2023 Tremaine Duque MD - 04/04/2023 1:00 PM ESTPatient Instructions Note Date & Type Note Facility 04-04-2023 History of Presen t illness Narrative Subjective Eri Klein is a 62 y.o. male Chief Complaint Annual Exam HPI Patient returns in follow-up of problems as noted. He is done well. Blood pressure is well-controlled as are lipids and because of this it appears no adjustments in therapy are necessary. He was educated regarding cardiac signs and symptoms watch when he denies such symptoms. In light of the above we believe he is stable. He questions whether henceforth his risk factor management can be performed by PCP and we believe this is a reasonable request and henceforth will see him only as needed. He was advised if problems or symptoms arise we be happy to see him again in the future. Review of Systems All other systems reviewed and are negative. Vitals: 04/04/23 1244 BP: 128/82 BP Location: Right arm Patient Position: Sitting Pulse: 62 Weight: 103 kg (228 lb) Height: 1.829 m (6') Objective Physical Exam Constitutional: Appearance: Normal appearance. He is normal weight. HENT: Nose: Nose normal. Neck: Vascular: No carotid bruit. Cardiovascular: Rate and Rhythm: Normal rate. Pulses: Normal pulses. Heart sounds: Normal heart sounds. Pulmonary: Effort: Pulmonary effort is normal. Abdominal: General: Bowel sounds are normal. Palpations: Abdomen is soft. Genitourinary: Rectum: Normal. Musculoskeletal: General: Normal range of motion. Cervical back: Normal range of motion. Right lower leg: No edema. Left lower leg: No edema. Skin: General: Skin is warm and dry. Neurological: General: No focal deficit present. Mental Status: He is alert. Psychiatric: Mood and Affect: Mood normal. Behavior: Behavior normal. Thought Content: Thought content normal. Judgment: Judgment normal. Allergies Shellfish derived Current Medications Current Outpatient Medications: amLODIPine (Norvasc) 5 mg tablet, Take 1 tablet (5 mg) by mouth once daily., Disp: , Rfl: aspirin 81 mg EC tablet, Take 1 tablet (81 mg) by mouth 2 times a day., Disp: , Rfl: atorvastatin (Lipitor) 40 mg tablet, Take 1 tablet (40 mg) by mouth once daily at bedtime., Disp: , Rfl: EPINEPHrine (Auvi-Q) 0.3 mg/0.3 mL injection syringe, INJECT NEEDED FOR SEVERE ALLERGIC REACTION INCLUDING ANAPHYLAXIS DIRECTED, Disp: , Rfl: multivit-min/ferrous fumarate (MULTI VITAMIN ORAL), Take 1 tablet by mouth once daily., Disp: , Rfl: Assessment/Plan 1. Coronary artery disease involving nenana coronary artery of nenana heart without angina pectoris No symptoms associate with coronary disease. Detailed review of systems performed and no signs or symptoms of active CAD 2. Essential hypertension Good control on present therapy, based upon review, no need for adjustment 3. Mixed hyperlipidemia Upon review of regiment it appears that no adjustments are necessary 4. Never smoked tobacco Patient congratulated on lifestyle choices Scribe Attestation By signing my name below, I, Kendra Bone LPN attest that this documentation has been prepared under the direction and in the presence of Tremaine Duque MD. Provider Attestation - Scribe documentation All medical record entries made by the Scribe were at my direction and personally dictated by me. I have reviewed the chart and agree that the record accurately reflects my personal performance of the history, physical exam, discussion and plan. documented in this encounter [facility] Work Phone: 04-04-2023 Instructions Lyn Lopez LPN - 04/04/2023 1:00 PM EST Please bring all medicines, vitamins, and herbal supplements with you when you come to the office. Prescriptions will not be filled unless you are compliant with your follow up appointments or have a follow up appointment scheduled as per instruction of your physician. Refills should be requested at the time of your visit. BMI was above normal measurement. Current weight: 103 kg (228 lb) Weight change since last visit (-) denotes wt loss 6 lbs Weight loss needed to achieve BMI 25: 44.1 Lbs Weight loss needed to achieve BMI 30: 7.3 Lbs Provided instructions on dietary changes Provided instructions on exercise. Follow up ordered as needed only documented in this encounter [facility] Work Phone: 03-05-2023 Evaluation note Encounter Date Diagnosis Assessment Notes Feb, Acute bronchitis due to other specified organisms (ICD-10 - J20.8) Instructed to use Robitussin or Mucinex for cough, saline or Flonase NS for congestion, Tylenol for pain and fever. CXR in 1-2 wks if symptoms fail to improve ER for chest pain or dyspnea [facility] Other 01-07-2024 Evaluation note* Encounter Date Diagnosis Assessment Notes Treatment Notes Treatment Clinical Notes Feb, Acute bronchitis due to other specified organisms (ICD-10 - J20.8) [facility] Other 08-25-2023 Evaluation note* Encounter Date Diagnosis Assessment Notes Treatment Notes Treatment Clinical Notes Sep, Strain of left knee, initial encounter (ICD-10 - S86.912A) Quad exercises, ice/heat and Tylenol. Avoid squatting or kneeling Monitor for swelling or increased pain [facility] Other [facility] Other Evaluation note* Diagnosis Coronary artery disease involving nenana coronary artery of nenana heart without angina pectoris- Primary Essential hypertension Unspecified essential hypertension Mixed hyperlipidemia Never smoked tobacco documented in this encounter [facility] Work Phone: Evaluation note* Diagnosis Onset Date Resolution Status ASHD (arteriosclerotic heart disease) acute Essential hypertension acute Hypercholesterolemia acute Lumbar spondylosis acute Screening PSA (prostate specific antigen) noneactive Welcome to Medicare preventive visit noneactive [facility] Work Phone: History general Narrative - Reported* Type Description Date Medical History Benign prostatic hyp erplasia with lower urinary tract symptoms Medical History Essential hypertension Medical History Lumbar spondylosis Medical History ASHD (arteriosclerotic heart dis ease) Medical History Primary osteoarthritis of right hip Surgical History CARDIAC CATHETERIZATION, LEFT H EART, 70% diagonal br., Surgical History Colonoscopy 2017 Surgical History STERLING (TOTAL HIP RIGHT ARTHROPLAS TY) Hospitalization History SEE SURGICAL HX [facility] Other History of Present illness NarrativePatient returns in follow-up of problems as noted. He is doing well. He is exercising regularly without anginal discomfort. We discussed and explained in tremendous detail the characteristics of angina to watch for and he is having no such symptomatology. Because of this we believe his coronary disease to be stable. Control and treatment of his risk factors including hypertension and hyperlipidemia is reviewed and felt to be adequate and appropriate. Again the merits of diet lifestyle modification exercise and weight loss were advocated.[facility] 250 DO Work Phone: History of Present illness Narrative* Returns in follow-up of problems as noted. He is done well and has had no angina CHF or arrhythmia symptomatology. He was educated regarding symptoms to watch for and has none. * We reviewed his management. His blood pressure control is excellent. His lipids, though, are in uncertainty. Its been 2 years since we have received any of the labs. Apparently they are being done byhis primary care physician but were not copied. I advised him that I would like to take an aggressive approach to his lipid management but I cannot do it without lab results and as a consequence we will attempt, again, to obtain labs from the hospital where they were performed. If in fact his LDL cholesterol could benefit from intensify therapy I suggested to him that we might actually add Zetia and the rationale for this was explained in detail and he agrees to the plan. * As before we emphasized the merits of diet and weight loss and its favorable impact on management of blood pressure and lipids. [facility] 250 DO Work Phone: Chief Complaint ERI KLEIN is being seen for a 6 month follow-up of.ERI KLEIN is being seen for a 6 month follow-up of.ERI KLEIN is being seen for a 6 month follow-up of. Family History Unknown Family Member Name Dates Details FH: CABG (coronary artery by pass surgery): Mother(V17.3, Z82.49) Status:Active Family history of stent: Fat her(V19.8, Z84.89) Status:Active Unknown Family Member Name Dates Details Family history of stent: Fat her(V19.8, Z84.89) Status:Active FH: CABG (coronary artery by pass surgery): Mother(V17.3, Z82.49) Status:Active Unknown Family Member Name Dates Details FH: CABG (coronary artery by pass surgery): Mother(V17.3, Z82.49) Status:Active Family history of stent: Fat her(V19.8, Z84.89) Status:Active Relationship Condition Age at Onset Recorded Date/T gina father Hypertension Unknown Heart disease Unknown Malignant neoplasm Unknown Not Specified Heart disease Unknown Unknown Summary Purpose Advance Directives Advance Directive Response Recorded Date/ Time Advance Directives No March 2:16pm Chief Complaint and Reason for Visit Chief Complaint Wellness Reason for Visit ASHD (arteriosclerot ic heart disease) Essential hypertension Hypercholesterolemia Lumbar spondylosis Screening PSA (prostate specific antigen) Welcome to Medicare preventive visit Additional Source Comments (unrecognized sect ion and content) No Status Records FoundNo Status Records FoundNo Status Records Found INFORMATION SOURCE (unrecogn ized section and content) DATE CREATED AUTHOR 09/06/2021 [facility] DATE CREATED AUTHOR AUTHOR'S ORGANIZ ATION 02/01/2022 [facility] DATE CREATED AUTHOR AUTHOR'S ORGANIZ ATION 04/12/2023 [facility] Ambulatory REASON FOR VISIT (unrecogniz ed section and content) Reason Comments Annual Exam Care Teams (unrecognized sec tion and content) Motion Picture Camer[employer] Relationship Specialty Start Date End Date Casey Klein DO [address] [place], [place] [id number] [address] PCP - General Internal Medicine 04/04/23 Team Status: Active Member Role Status Dates Casey Klein DO Primary Care Provider Active Team Status: Inactive Member Role Status Dates Casey Klein DO Primary Care Provide r, Attending Provider Active Start: June 18, 2023 End: June 18, 2023 Goals (unrecognized section and content) Goals may be documented in a n alternate section FOR RECORDS PERTAINING TO PATIENTS WHO ARE OR HAVE BEEN ENROLLED IN A CHEMICAL DEPENDENCY/SUBSTANCEABUSE PROGRAM, SOME INFORMATION MAY BE OMITTED. This clinical summary was aggregated from multiple sources. Caution should be exercised in using it in the provision of clinical care. This summary normalizes information from multiple sources, and as a consequence, information in this document may materially change the coding, format and clinical context of patient data. In addition, data may be omitted in some cases. CLINICAL DECISIONS SHOULD BE BASED ON THE PRIMARY CLINICAL RECORDS. [employer] provides no warranty or guarantee of the accuracy or completeness of information in this document.
== END 2023-07-27 06:33 | disposition home or self-care (01) ==
LOC: MRI 06:33
PROVIDERS: Visit Provider Internal Medicine
DX: M54.50 Low back pain, unspecified (principal); M47.816 Spondylosis without myelopathy or radiculopathy, lumbar region
CPT/HCPCS: 72148

== ENCOUNTER 2024-06-27 12:26 | Outpatient (OUT) | payer MEDICARE, SELFPAY ==
--- OUTSIDE RECORDS SUMMARY | 2024-06-27 12:48 | XMS_ITS | CCD ---
Author Organization [facility] Care Team Providers Care Alliance Director Name Role Phone Casey Gorman Unavailable Unavailable Unavailable DR CASEY GORMAN Primary Care Unavailable LATOYA, DR MCFARLANE Admitting Unavailable LATOYA, DR MCFARLANE Attending Unavailable LATOYA, DR MCFARLANE Consulting Unavailable LATOYA, DR MCFARLANE Admitting Unavailable LATOYA, DR MCFARLANE Attending Unavailable LATOYA, DR MCFARLANE Consulting Unavailable LATOYA, DR MCFARLANE Primary Care Unavailable TISHA, DR RENEE Taylor Consulting Unavailable Casey Gorman Unavailable Casey Gorman DO Primary Care Provider TREMAIEN DUQUE Attending Unavailable CASEY GORMAN Primary Care Unavailable JOSE MIGUEL HALEY Attending Unavailable DO Casey Gorman Primary Care Provider [phone] DO Casey Gorman Attending Provider [phone] Casey Gorman DO Primary Care Provider [phone] Hayden VILLARREAL, Impatricia Attending Provider Hayden Impatricia Admitting Unavailable Hayden Impatricia Attending Unavailable Casey Gorman Primary Care Unavailable Casey Gorman Primary Care Unavailable Casey Gorman Attending Unavailable Casey Gorman Admitting Unavailable Allergies Allergy Classification Reported Allergen(s) Allergy Type Date of Onset Reaction(s) Facility (3 sources) shellfish, unspecified Allergy to substance (finding) [facility] DO Work Phone: (5 sources) Shellfish; Translations: [SHELLFISH DERIVED] Propensity to adverse reactions to food (disorder) 4 Anaphylaxis [facility] 3 Repository Comment on above: face and throat swel ling Medications Current Medications Medication Drug Class(es) Dates Sig (Normalized) Sig (Original) amLODIPine 5 mg oral tablet (11 sources) Dihydropyridine Calcium Channel Rasia Start: 12-26-2023 take 1 tablet by mouth once daily Amlodipine 5 mg tablet Active 0 .ROUTE .COMPLEX December 26, 2023 9:37am TAKE 1 TABLET BY MOUTH DAILY Start: 06-15-2023 End: 12-26-2023 take 1 tablet by mouth once daily Amlodipine 5 mg tablet Discontinued 5 MG PO Daily June 15, 2023 12:00am December 26, 2023 9:37am take 1 tablet by candace th once daily amLODIPine (Norvasc) 5 mg tablet Take 1 tablet (5 mg) by mouth once daily. 0 Active aspirin 81 mg delayed release oral tablet (10 sources) Platelet Aggregation Inhibitor, Nonsteroidal Anti-inflammatory Drug Start: 06-18-2023 take 2 tablets by mouth once daily Aspirin 81 mg tablet,delayed release (DR/EC) Active 162 MG PO Daily June 18, 2023 12:00am Start: 06-18-2023 take 81 mg by mouth once daily Aspirin Active 81 MG PO Daily June 18, 2023 12:00am Start: 04-21-2019 End: 06-15-2023 take 1 tablet by mouth once daily Aspirin 81 mg Tablet,Chewable Discontinued 81 MG PO Daily April 21, 2019 12:00am June 15, 2023 4:17pm take 1 tablet by candace th twice daily aspirin 81 mg EC tablet Take 1 tablet (81 mg) by mouth 2 times a day. 0 Active atorvastatin 40 mg oral tablet (17 sources) HMG-CoA Reductase Inhibitor Start: 06-04-2023 take 1 tablet by mouth once daily in the evening Atorvastatin 40 mg tablet Active 0 .ROUTE .COMPLEX June 04, 2023 1:33pm TAKE 1 TABLET BY MOUTH EVERY EVENING Start: 06-04-2023 take 1 tablet by candace th once daily in the evening Atorvastatin Active 0 .ROUTE .COMPLEX June 04, 2023 1:33pm TAKE 1 TABLET BY MOUTH EVERY EVENING Start: 03-19-2020 End: 06-04-2023 take 1 tablet by mouth once daily at bedtime Atorvastatin (Lipitor) 40 mg tablet Discontinued 40 MG PO Daily at bedtime March 19, 2020 1:00am June 04, 2023 1:33pm Start: 04-21-2019 End: 03-19-2020 take 1 tablet by mouth once daily Atorvastatin 20 mg tablet Discontinued 20 MG PO Daily April 21, 2019 12:00am March 19, 2020 12:03pm cefdinir 300 mg oral capsule (2 sources) Cephalosporin Antibacterial Start: 03-05-2023 Cefdinir 300 MG as directed Orally bid for 7 days Feb, Active [id number] 0.3 ml EPINEPHrine 1 mg/ml auto-injector (2 [...] daily. 0 Active Multivitamin (Daily Multi-Vitamin) tablet (3 sources) Start: 06-18-2023 take 1 tablet by mouth [...] 11 PM Orally bid for 1 days BIN:[id number] PCN: [id number] GROUP:[id number] ID:[id number] Mar, Not-Taking/PRN Start: 03-21-2019 Plenvu 140 GM DOSE 1 AT 4 AND DOSE 2 POUCH A AND B AT 11 PM Orally bid for 1 days BIN:[id number] PCN: [id number] GROUP:[id number] ID:[id number] Mar, Not-Taking azithromycin 250 mg oral tablet (2 sources) Macrolide Antimicrobial Start: 01-20-2024 End: 04-11-2024 Azithromycin 250 mg tablet Discontinued 250 MG PO .COMPLEX 6 5 March 06, 2024 1:40pm April 11, 2024 9:24am 2 tabs on first day followed by 1 tab on days 2-5 benzonatate 100 mg oral capsule (6 sources) Non-narcotic Antitussive Start: 06-15-2023 End: 06-18-2023 take 1 capsule by mouth three times daily Benzonatate 100 mg capsule Discontinued 100 MG PO Three times daily June 15, 2023 12:00am June 18, 2023 10:33am Start: 02-18-2023 take 1 capsule by mo cah every eight hours Benzonatate 100 MG 1 [...] DO Active lisinopril 10 mg oral tablet (3 sources) Angiotensin Converting Enzyme Inhibitor Start: 04-21-2019 End: 06-15-2023 take 1 tablet by mouth once daily Lisinopril 10 mg tablet Discontinued 10 MG PO Daily April 21, 2019 12:00am June 15, 2023 4:17pm Multi Vitamin Oral Tablet (1 source) take 1 tablet by mouth once daily Multi Vitamin Oral Tablet TAKE 1 TABLET DAILY. Quantity: 0 Refills: 0 Ordered: 05-Sep-2021 DO Active naproxen sodium 220 mg oral tablet (3 sources) Nonsteroidal Anti-inflammatory Drug Start: 03-17-2020 End: 06-15-2023 take 2 tablets by mouth twice daily Naproxen Sodium (Aleve) 220 mg Tablet Discontinued 440 MG PO Twice daily March 17, 2020 1:00am June 15, 2023 4:17pm nitroglycerin 0.4 mg sublingual tablet (3 sources) Nitrate Vasodilator Start: 03-19-2020 End: 06-15-2023 Nitroglycerin 0.4 mg Tablet, Sublingual Discontinued 0.4 MG SUBLINGUAL Q5M as needed for Chest Pain March 19, 2020 1:00am June 15, 2023 [...] Episodic Coronary atherosclerosis and other heart disease (11 sources) Coronary arteriosclerosis; Translations: [Coronary atherosclerosis of unspecified type of vessel, chefornak or graft] Onset: 02-23-2023 04-04-2023 Chronic Disorders of lipid metabolism (14 sources) Hyperlipidemia; Translations: [Other and unspecified hyperlipidemia] Onset: 02-23-2023 04-04-2023 Chronic Comment on above: Problem List clean-u p per request of Phys. EHR Cmte Essential hypertension (14 sources) Essential hypertension; Translations: [Unspecified essential hypertension] Onset: 02-23-2023 04-04-2023 Chronic Comment on above: Problem List clean-u p per request of Phys. EHR Cmte Nonspecific chest pain (3 sources) Chest pain; Translations: [Chest pain, unspecified] 01-24-2023 Episodic Comment on above: Problem List clean-u p per request of Phys. EHR Cmte Other and unspecified benign neoplasm (1 source) Personal history of colonic polyps; Translations: [History of colon polyps] Episodic Other and unspecified benign neoplasm (6 sources) History of polyp of colon; Translations: [Personal history of colonic polyps] 01-24-2023 Episodic Comment on above: Problem List clean-u p per request of Phys. EHR Cmte Other and unspecified benign neoplasm (2 sources) Adenomatous polyp of colon ; Translations: [Benign neoplasm of colon, unspecified] 06-18-2023 Episodic Comment on above: tubular adenoma x 3 Other nutritional; endocrine; and metabolic disorders (1 source) Obesity; Translations: [Obesity, unspecified] Chronic Other nutritional; endocrine; and metabolic disorders (2 sources) Overweight in adulthood with body mass index of 25 or more but less than 30; Translations: [Overweight] Episodic Other screening for suspected conditions (not mental disorders or infectious disease) (3 sources) Encounter for screening for malignant neoplasm [...] Spondylosis; intervertebral disc disorders; other back problems (8 sources) Spondylosis without myelopathy or radiculopathy, lumbar region; Translations: [Lumbar spondylosis] Onset: 01-25-2022 Chronic Spondylosis; intervertebral disc disorders; other back problems (3 sources) Low back pain; Translations: [Low back pain] 06-18-2023 Episodic Sprains and strains (1 source) Strain of unspecified muscle(s) and tendon(s) at lower leg level, left leg, initial encounter Episodic Unclassified (1 source) Low back pain, unspecified; Translations: [Low back pain, unspecified] Onset: 11-05-2023 Results Test Name Value Interpretation Reference Range Facil ity Tobacco Screening.on 023 Adult depression screening assessment [facility] Work Phone: Fall risk assessment c) Not medically indicated [facility] iKaaz DO Work Phone: Tobacco use status CP b) [facility] Work Phone: CBC AUTO DIFFon 01-27-2022 BASO # 0.0 103/ul Normal 0.0-0.1 [facility] Comment on above: Performed By: #### C BC #### [facility] [address] [place] [address] Dr. Viri Remy Basophils/100 WBC (Bld) 0.6 % Normal 0.2-2.0 [facility] Comment on above: Performed By: #### C BC #### [facility] [address] [place] [address] Dr. Viri Remy EO # 0.1 103/ul Normal 0.0-0.7 [facility] Comment on above: Performed By: #### C BC #### [facility] [address] [place] [address] Dr. Viri Remy Eosinophils/100 WBC (Bld) 1.3 % Normal 0.9-7.0 [facility] Comment on above: Performed By: #### C BC #### [facility] [address] [place] [address] Dr. Viri Remy Erythrocyte distribution width (RBC) [Ratio] 12.6 % Normal 11.0-15.0 [facility] Comment on above: Performed By: #### C BC #### [facility] [address] [place] [address] Dr. Viri Remy Hematocrit (Bld) [Volume fraction] 49.3 % Normal 42.0-54.0 [facility] Comment on above: Performed By: #### C BC #### [facility] [address] [place] [address] Dr. Viri Remy Hemoglobin (Bld) [Mass/Vol] 16.7 g/dL Normal 14.0-18.0 [facility] Comment on above: Performed By: #### C BC #### [facility] [address] [place] [address] Dr. Viri Remy IG # 0.01 10e3/ul Normal 0.00-0.03 [facility] Comment on above: Performed By: #### C BC #### [facility] [address] [place] [address] Dr. Viri Remy IG % 0.1 % Normal 0.0-0.5 [facility] Comment on above: Performed By: #### C BC #### [facility] [address] [place] [address] Dr. Viri Remy LYMPH # 2.1 103/ul Normal 1.2-3.8 [facility] Comment on above: Performed By: #### C BC #### [facility] [address] [place] [address] Dr. Viri Remy Lymphocytes/100 WBC (Bld) 29.3 % Normal 20.5-60.0 [facility] Comment on above: Performed By: #### C BC #### [facility] [address] [place] [address] Dr. Viri Remy MANUAL DIFF REQ NO Normal [facility] Comment on above: Performed By: #### C BC #### [facility] [address] [place] [address] Dr. Viri Remy MCH (RBC) [Entitic mass] 29.9 pg Normal 25.9-34.0 [facility] Comment on above: Performed By: #### C BC #### [facility] [address] [place] [address] Dr. Viri Remy MCHC (RBC) [Mass/Vol] 33.9 g/dL Normal 29.9-35.2 [facility] Comment on above: Performed By: #### C BC #### [facility] [address] [place] [address] Dr. Viri Remy MCV (RBC) [Entitic vol] 88.4 fL Normal 80.0-94.0 [facility] Comment on above: Performed By: #### C BC #### [facility] [address] [place] [address] Dr. Viri Remy MONO # 0.6 103/ul Normal 0.3-0.8 [facility] Comment on above: Performed By: #### C BC #### [facility] [address] [place] [address] Dr. Viri Remy Monocytes/100 WBC (Bld) 7.9 % Normal 1.7-12.0 [facility] Comment on above: Performed By: #### C BC #### [facility] [address] [place] [address] Dr. Viri Remy NEUT # 4.3 103/ul Normal 1.4-6.5 [facility] Comment on above: Performed By: #### C BC #### [facility] [address] [place] [address] Dr. Viri Remy Neutrophils/100 WBC (Bld) 60.8 % Normal 43.0-75.0 [facility] Comment on above: Performed By: #### C BC #### [facility] [address] [place] [address] Dr. Viri Remy Platelet mean volume (Bld) [Entitic vol] 9.9 fL Normal 9.5-13.5 [facility] Comment on above: Performed By: #### C BC #### [facility] [address] [address] [address] Viri Remy PLT 251 103/ul Normal 150-450 [facility] Comment on above: Performed By: #### C BC #### [facility] [address] [address] [address] Viri Remy RBC 5.58 106/ul Normal 4.70-6.10 [facility] Comment on above: Performed By: #### C BC #### [facility] [address] [address] [address] Viri Remy WBC 7.0 103/ul Normal 4.0-11.0 [facility] Comment on above: Performed By: #### C BC #### [facility] [address] [place] [address] Dr. Viri Remy LIPID PROFILEon 01-27-2022 CHOL-HDL RATIO NORM SEE BELOW Normal [facility] Comment on above: Result Comment: 3.3 - 4.4 LOW RISK 4.4 - 7.1 AVERAGE RISK 7.1 - 11.0 MODERATE RISK >11.0 HIGH RISK Performed By: #### L IPID, CMP #### [facility] [address] [place] [address] Dr. Viri Remy Cholesterol [Mass/Vol] 147 mg/dL Normal <=200 [facility] Comment on above: Performed By: #### L IPID, CMP #### [facility] [address] [place] [address] Dr. Viri Remy Cholesterol in HDL [Mass/Vol] 71 mg/dL Critically high 40-60 [facility] Comment on above: Performed By: #### L IPID, CMP #### [facility] [address] [place] [address] Dr. Viri Remy Cholesterol in LDL [Mass/Vol] 41.6 mg/dL Normal [facility] Comment on above: Performed By: #### L IPID, CMP #### [facility] [address] [place] [address] Dr. Viri Remy Cholesterol.total/ Cholesterol in HDL [Mass ratio] 2.1 {ratio} Normal [facility] Comment on above: Performed By: #### L IPID, CMP #### [facility] [address] [address] [address] Viri Remy HDL NORMAL > or = 60 mg/dl - LO W CARDIOVASCULAR RISK <40 mg/dl - HIGH CARDIOVASCULAR RISK Normal [facility] Comment on above: Performed By: #### L IPID, CMP #### [facility] [address] [place] [address] Dr. Viri Remy LDL CALC NORMAL SEE BELOW Normal [facility] Comment on above: Result Comment: <100 mg/dl OPTIMAL 100 - 129 mg/dl NEAR OR ABOVE OPTIMAL 130 - 159 mg/dl BORDERLINE HIGH 160 - 189 mg/dl HIGH >190 mg/dl VERY HIGH Performed By: #### L IPID, CMP #### [facility] [address] [place] [address] Dr. Viri Remy Triglyceride [Mass/Vol] 172 mg/dL Critically high <=150 [facility] Comment on above: Performed By: #### L IPID, CMP #### [facility] [address] [place] [address] Dr. Viri Remy VLDL CALC 34.4 mg/dL Normal [facility] Comment on above: Performed By: #### L IPID, CMP #### [facility] [address] [place] [address] Dr. Viri Remy PROF 14(COMP METB)on 022 Albumin [Mass/Vol] 4.1 g/dL Normal 3.4-5.0 [facility] Comment on above: Performed By: #### L IPID, CMP #### [facility] [address] [place] [address] Dr. Viri Remy Albumin/Globulin [Mass ratio] 1.2 {ratio} Normal [facility] Comment on above: Performed By: #### L IPID, CMP #### [facility] [address] [place] [address] Dr. Viri Remy ALP [Catalytic activity/Vol] 63 U/L Normal 46-116 [facility] Comment on above: Performed By: #### L IPID, CMP #### [facility] [address] [place] [address] Dr. Viri Remy ALT [Catalytic activity/Vol] 52 U/L Normal 16-63 [facility] Comment on above: Performed By: #### L IPID, CMP #### [facility] [address] [place] [address] Dr. Viri Remy Anion gap [Moles/Vol] 10.8 mmol/L Normal [facility] Comment on above: Performed By: #### L IPID, CMP #### [facility] [address] [place] [address] Dr. Viri Remy AST [Catalytic activity/Vol] 26 U/L Normal 15-37 [facility] Comment on above: Performed By: #### L IPID, CMP #### [facility] [address] [place] [address] Dr. Viri Remy Bilirubin [Mass/Vol] 1.6 mg/dL Critically high 0.2-1.0 [facility] Comment on above: Performed By: #### L IPID, CMP #### [facility] [address] [place] [address] Dr. Viri Remy Calcium [Mass/Vol] 9.2 mg/dL Normal 8.5-10.1 [facility] Comment on above: Performed By: #### L IPID, CMP #### [facility] [address] [place] [address] Dr. Viri Remy Chloride [Moles/Vol] 104 mmol/L Normal 98-107 [facility] Comment on above: Performed By: #### L IPID, CMP #### [facility] [address] [place] [address] Dr. Viri Remy CO2 [Moles/Vol] 30.1 mmol/L Normal 21.0-32.0 [facility] Comment on above: Performed By: #### L IPID, CMP #### [facility] [address] [place] [address] Dr. Viri Remy Creatinine [Mass/Vol] 1.02 mg/dL Normal 0.70-1.30 [facility] Comment on above: Performed By: #### L IPID, CMP #### [facility] [address] [place] [address] Dr. Viri Remy EGFR-AF ALBANIAN >60 Normal >=60 [facility] Comment on above: Performed By: #### L IPID, CMP #### [facility] [address] [address] [address] Viri Remy EGFR-NON AF ALBANIAN >60 Normal >=60 [facility] Comment on above: Performed By: #### L IPID, CMP #### [facility] [address] [place] [address] Dr. Viri Remy Globulin (S) [Mass/Vol] 3.4 g/dL Normal [facility] Comment on above: Performed By: #### L IPID, CMP #### [facility] [address] [place] [address] Dr. Viri Remy Glucose [Mass/Vol] 90 mg/dL Normal 74-106 [facility] Comment on above: Performed By: #### L IPID, CMP #### [facility] [address] [place] [address] Dr. Viri Remy Potassium [Moles/Vol] 3.9 mmol/L Normal 3.5-5.1 [facility] Comment on above: Performed By: #### L IPID, CMP #### [facility] [address] [place] [address] Dr. Viri Remy Protein [Mass/Vol] 7.5 g/dL Normal 6.4-8.2 [facility] Comment on above: Performed By: #### L IPID, CMP #### [facility] [address] [place] [address] Dr. Viri Remy Sodium [Moles/Vol] 141 mmol/L Normal 136-145 [facility] Comment on above: Performed By: #### L IPID, CMP #### [facility] [address] [place] [address] Dr. Viri Remy Urea nitrogen [Mass/Vol] 15.0 mg/dL Normal 7.0-18.0 [facility] Comment on above: Performed By: #### L IPID, CMP #### [facility] [address] [place], [place] [address] Dr. Viri Remy Urea nitrogen/Creatinin e [Mass ratio] 14.7 mg/mg Normal [facility] Comment on above: Performed By: #### L IPID, CMP #### [facility] [address] [place], [place] [address] Dr. Viri Remy XR LSPINE W_OBLS AND [...] by: RENEE GILES Date: 2022-01-26 06:14 Normal [facility] Office Visit (Cardiology)on 09-05-2021 Follow-up visit Diagnoses/Problems Assessed Coronary artery disease (414.00) (I25.10) Essential hypertension (401.9) (I10) Hyperlipidemia (272.4) (E78.5) Former smoker (V15.82) (Z87.891) in colllege - light smoker. Overweight with body mass index (BMI) of 29 to 29.9 in adult (278.02,V85.25) (E66.3,Z68.29) Orders Overweight with body mass index (BMI) of 29 to 29.9 in adult Healthy Weight Tips; Status:Complete; Done: [id number] Some eating tips that can help you lose weight.; Status:Complete; Done: [id number] SocHx: Former smoker Tobacco Use Screening; Status:Complete; Done: [id number] Patient Instructions Please bring all medicines, vitamins, and herbal supplements with you when you come to the office. Prescriptions will not be filled unless you are compliant with your follow up appointments or have a follow up appointment scheduled as per instruction of your physician. Refills should be requested at the time of your visit Follow up in 6 months Chief Complaint ERI GORMAN is being seen for a 6 month [...] negative for complaint. Vitals Vital Signs Recorded: 05Sep2021 03:22PM Heart Rate72, L Radial Fwlcmesg403, LUE, Sitting Owkuolqaw71, LUE, Sitting Height5 ft 11 in Fukfrp023 lb 6.4 oz BMI Eapydsmbmu54.9 kg/m2 BSA Calculated2.17 Tobacco Useb) No PHQ-2 [...] Sep 05 2021 5:24PM EST (Author) Normal [facility] Office Visit (Cardiology)on 01-24-2021 Follow-up visit Diagnoses/Problems [...] Weight Tips; Status:Complete - Retrospective Authorization; Done: [id number] SocHx: Former smoker Tobacco Use Screening; Status:Complete; Done: [id number] Follow up in 1 year continue current [...] time of your visit. Chief Complaint ERI GORMAN is being seen for a 6 month [...] negative for complaint. Vitals Vital Signs Recorded: [id number] 06:02PMRecorded: [id number] 10:07AM Ukuovzkf730, RUE, Sxpvqvm009, LUE, Sitting Yyoyjcsht20, RUE, Ilkcajt53, LUE, Sitting Heart Rate89, L Radial Height6 ft Jaebgf632 lb BMI Tfspmwmque09.94 kg/m2 BSA Calculated2.16 Tobacco Useb) No Physical [...] Jan 24 2021 6:04PM EST (Author) Normal [facility] Tobacco Screening.on 021 Tobacco use status [facility] b) No [facility] DO Work Phone: Vital Signs Date Time Vital Sign Value Performing Clinician Facility 04-22-2024 09:50-0400 Diastolic blood pressure 71 mm[Hg] [employer] DO Work Phone: [facility] 04-22-2024 09:50-0400 Heart rate 74 /min [employer] DO Work Phone: [facility] 04-22-2024 09:50-0400 Respiratory rate 20 /min Casey Ball DO Work Phone: [facility] 04-22-2024 09:50-0400 SaO2% (BldA) [Mass fraction] 98 % Casey Ball DO Work Phone: [facility] 04-22-2024 09:50-0400 Systolic blood pressure 118 mm[Hg] Casey Ball DO Work Phone: [facility] 04-22-2024 08:40-0400 Body height 182.88 cm Casey Ball DO Work Phone: [facility] 04-22-2024 08:40-0400 Body weight 99.79 kg Casey Ball DO Work Phone: [facility] 06-18-2023 10:35-0400 Body height 180.34 cm [facility] 06-18-2023 10:35-0400 Body mass index (BMI) [Ratio] 31.5 kg/m2 [facility] 06-18-2023 10:35-0400 Body weight 102.56 kg [facility] 06-18-2023 10:35-0400 Diastolic blood pressure 89 mm[Hg] [facility] 06-18-2023 10:35-0400 Heart rate 69 /min [facility] 06-18-2023 10:35-0400 Respiratory rate 12 /min [facility] 06-18-2023 10:35-0400 Systolic blood pressure 133 mm[Hg] [facility] 04-04-2023 12:44-0500 Body height 182.9 cm Tremaine Duque MD Work Phone: [facility] 04-04-2023 12:44-0500 Body mass index (BMI) [Ratio] 30.92 kg/m2 Tremaine Duque MD Work Phone: [facility] 04-04-2023 12:44-0500 Body weight 103.42 kg Tremaine Duque MD Work Phone: [facility] 04-04-2023 12:44-0500 Diastolic blood pressure 82 mm[Hg] Tremaine Duque MD Work Phone: [facility] 04-04-2023 12:44-0500 Heart rate 62 /min Tremaine Duque MD Work Phone: [facility] 04-04-2023 12:44-0500 Systolic blood pressure 128 mm[Hg] Tremaine Duque MD Work Phone: [facility] 03-05-2023 14:00-0500 Body height 180.34 cm Casey Ball Other [employer] Other 03-05-2023 14:00-0500 Body mass index (BMI) [Ratio] 31.91 kg/m2 Casey Ball Other [employer] Other 03-05-2023 14:00-0500 Body weight 103.78 kg Casey Ball Other [employer] Other 03-05-2023 14:00-0500 Diastolic blood pressure 76 mm[Hg] Casey Ball Other [employer] Other 03-05-2023 14:00-0500 Respiratory rate 12 /min Casey Ball Other [employer] Other 03-05-2023 14:00-0500 Systolic blood pressure 119 mm[Hg] Casey Ball Other [employer] Other 10-06-2022 09:45-0400 Body height 180.34 cm Casey Ball Other [employer] Other 10-06-2022 09:45-0400 Body mass index (BMI) [Ratio] 30.96 kg/m2 Casey Ball Other [employer] Other 10-06-2022 09:45-0400 Body weight 100.7 kg Casey Ball Other [employer] Other 10-06-2022 09:45-0400 Diastolic blood pressure 81 mm[Hg] Casey Ball Other [facility] [employer] Other 10-06-2022 09:45-0400 Respiratory rate 12 /min Casey Ball Other [facility] [employer] Other 10-06-2022 09:45-0400 Systolic blood pressure 126 mm[Hg] Casey Ball Other [facility] [employer] Other 03-24-2022 13:54-0500 Body height 182.88 cm Casey E Ball [facility] DO Work Phone: 03-24-2022 13:54-0500 Body mass index (BMI) [Ratio] 30.11 kg/m2 Casey E Ball Work Phone: [facility] [employer] 250 DO Work Phone: 03-24-2022 13:54-0500 Body surface area Derived from formula 2.23 m2 Casey E Ball Work Phone: [facility] [employer] 250 DO Work Phone: 03-24-2022 13:54-0500 Body weight 100.7 kg Casey E Ball Work Phone: [facility] [employer] 250 DO Work Phone: 03-24-2022 13:54-0500 Diastolic blood pressure 58 mm[Hg] Casey E Ball Work Phone: [facility] [employer] DO Work Phone: 03-24-2022 13:54-0500 Heart rate 72 /min Casey E Ball Work Phone: [facility] [employer] 250 DO Work Phone: 03-24-2022 13:54-0500 Systolic blood pressure 102 mm[Hg] Casey E Ball Work Phone: [facility] 250 DO Work Phone: 01-24-2021 18:02-0500 Diastolic blood pressure 88 mm[Hg] Casey E Ball Work Phone: [facility] 250 DO Work Phone: 01-24-2021 18:02-0500 Systolic blood pressure 137 mm[Hg] Casey E Ball Work Phone: [facility] 250 DO Work Phone: 01-24-2021 10:07-0500 Body height 182.88 cm Casey Acuña Ball Work Phone: [facility] 250 DO Work Phone: 01-24-2021 10:07-0500 Body mass index (BMI) [Ratio] 27.94 kg/m2 Casey Acuña Ball Work Phone: [facility] 250 DO Work Phone: 01-24-2021 10:07-0500 Body surface area Derived from formula 2.16 m2 Casey Acuña Ball Work Phone: [facility] 250 DO Work Phone: 01-24-2021 10:07-0500 Body weight 93.44 kg Casey Acuña Ball Work Phone: [facility] 250 DO Work Phone: 01-24-2021 10:07-0500 Diastolic blood pressure 94 mm[Hg] Casey Acuña Ball Work Phone: [facility] 250 DO Work Phone: 01-24-2021 10:07-0500 Heart rate 89 /min Casey Acuña Ball Work Phone: [facility] 250 DO Work Phone: 12-13-2021 10:07-0500 Systolic blood pressure 137 mm[Hg] Casey Gorman Work Phone: [facility] 250 DO Work Phone: Encounters Encounter Date Encounter Type Care Provider Facility Start: 04-22-2024 Non-patient / Non-visit Keo in Ball DO Work Phone: [facility] Work Phone: Start: 04-22-2024 End: 04-22-2024 Admission to same day surgery center Casey Ball DO Work Phone: [facility] Work Phone: Start: 04-22-2024 End: 04-22-2024 ambulatory Casey Ball DO Work Phone: [facility] Work Phone: Start: 11-05-2023 End: 11-05-2023 ambulatory DO Casey Gorman Work Phone: [facility] Work Phone: Start: 11-05-2023 End: 11-05-2023 Discharged Recurring DO Casey Gorman Work Phone: [facility] Start: 08-06-2023 End: 08-06-2023 ambulatory JOSE MIGUEL Michel RICKYBASEK Not Available Start: 06-18-2023 End: 06-18-2023 ambulatory [facility] Work Phone: Start: 06-18-2023 End: 06-18-2023 Encounter for general adult medical examination without abnormal findings [facility] Start: 06-18-2023 End: 06-18-2023 Patient encounter procedure [facility] Work Phone: Start: 04-04-2023 End: 04-04-2023 ambulatory TREMAINE DUQUE [facility] Start: 04-04-2023 End: 04-04-2023 Office outpatient visit 15 minutes Tremaine Duque MD Work Phone: [facility] Comment on above: Coronary artery dise ase involving chefornak coronary artery of chefornak heart without angina pectoris (Primary Dx); Essential hypertension; Mixed hyperlipidemia; Never smoked tobacco Start: 03-05-2023 End: 03-05-2023 ambulatory Casey Gorman Other [employer] Other Start: 03-05-2023 Patient encounter procedure Casey Gorman [facility] Start: 03-05-2023 Telephone encounter Casey PORTER [facility] Start: 02-18-2023 End: 02-18-2023 ambulatory Casey Gorman Other [employer] Other Start: 02-18-2023 Telephone encounter Casey PORTER [facility] Start: 10-06-2022 End: 10-06-2022 ambulatory Casey Gorman Other [employer] Other Start: 10-06-2022 Patient encounter procedure Casey Gorman [facility] Start: 03-24-2022 Office outpatient vi sit 25 minutes Casey Gorman Work Phone: [facility] 250 DO Work Phone: Start: 02-01-2022 Encounter for genera l adult medical examination without abnormal findings DR CASEY GORMAN [facility] Start: 01-27-2022 End: 01-28-[address] CASEY GORMAN Facility:[facility] Start: 01-27-2022 End: 01-28-2022 Encounter for general adult medical examination without abnormal findings DR CASEY GORMAN Facility:[facility] Start: 01-25-2022 End: 01-26-[address] CASEY GORMAN Facility:[facility] Start: 01-24-2021 Office outpatient vi sit 15 minutes Casey Gorman Work Phone: [facility] 250 DO Work Phone: Procedures Date Procedure Procedure Detail Performing Clinician Start: 04-22-2024 Colonoscopy Casey B all DO Work Phone: Start: 01-27-[address] KEO GORMAN Comment on above: Performed By: #### P [facility] #### [facility] [address] [address] [address] Viri Remy Start: 02-13-2020 Total colonoscopy Sanjay min Michel Ball Work Phone: Hernia repair Casey Napier l Work Phone: Operation on skin Casey Gorman Work Phone: Prosthetic arthropla sty of the hip Casey Gorman Work Phone: Comment on above: right; Total replacement of hip Dmitriy Acuña Ball Work Phone: Comment on above: right; Plan of Treatment Date Care Activity Detail Author Start: 04-22-2024 [facility] Start: 04-04-2023 FUV, Provider: Tremaine Duque, Status: Pen, Time: 1:00 PM FUV, Provider: Tremaine Duque, Status: Pen, Time: 1:00 PM [facility] 250 DO Work Phone: Start: 10-13-2022 COVID-19 Vaccine ( season) COVID-19 Vaccine ( season) [facility] Start: 10-13-2022 Influenza vaccination Influenza Vaccine (#1) [facility] Start: 08-05-2021 FUV, Provider: Tremaine Duque, Status: Pen, Time: 2:00 PM FUV, Provider: Tremaine Duque, Status: Pen, Time: 2:00 PM [facility] Work [facility]: Start: 2008 Zoster Vaccines (1 of 2) Zoster Vaccines (1 of 2) [facility] Start: 1980 DTaP/Tdap/Td Vaccines (1 - Tdap) DTaP/Tdap/Td Vaccines (1 - Tdap) [facility] Start: 1976 Hepatitis C screening Hepatitis C Screening [facility] Start: 1964 Pneumococcal Vaccine: 65+ Years (1 - PCV) Pneumococcal Vaccine: 65+ Years (1 - PCV) [facility] Start: 1964 Pneumococcal Vaccine: Pediatrics (0 to 5 Years) and At-Risk Patients (6 to 64 Years) (1 - PCV) Pneumococcal Vaccine: Pediatrics (0 to 5 Years) and At-Risk Patients (6 to 64 Years) (1 - PCV) [facility] Start: 05-20-1959 MMR Vaccines (1 of 1 - Standard series) MMR Vaccines (1 of 1 - Standard series) [facility] Start: 1958 HIV screening HIV Screening [facility] Start: 1960 Lipid panel Lipid Panel [facility] Start: 1960 Screening for malignant neoplasm of colon [facility] Start: 1960 Yearly Adult Physical Yearly Adult Physical [facility] Patient Education Hemorrhoids ED Know your Med[facility] Work Phone: XR Lumbar spine Views [facility] Immunizations Immunization Date Immunization Notes Care Provider Fa cility 11-19-2020 Pfizer-BioNTech COVID-19 Vacc 30 MCG/0.3ML Intramuscular Suspension [facility] Work Phone: 10-29-2020 Pfizer-BioNTech COVID-19 Vacc 30 MCG/0.3ML Intramuscular Suspension [facility] Work Phone: 11-20-2018 influenza virus vaccine, split virus (incl. purified surface antigen) Casey Gorman Other [facility] [employer] Other 11-20-2018 influenza virus vaccine, unspecified formulation [facility] 02-12-2018 influenza, seasonal, injectable Casey Gorman Work Phone: [facility] 250 DO Work Phone: 02-12-2018 influenza virus vaccine, unspecified formulation Tremaine Duque MD Work Phone: [facility] Work Phone: Payers Date Payer Category Payer Self-pay [id number] 2023 Medicare [id number] 2023 Medicare [id number] 2023 Private Health Insurance [facility] [id number] 2023-Present [address] [place] [address] [id number] 2023 Private Health Insurance [id number] 1961 Unknown [id number] 1960 Unknown [id number] 1960 Unknown [id number] 1958 Unknown [id number] 1958 Unknown [id number] Private Health Insurance [id number] Unknown [facility] Unknown [id number] Unknown [id number] Social History Date Type Detail Facility Start: 02-23-2023 Alcohol use Alcohol use -[facility] 250 DO Work Phone: Comment on above: Tea/Pop decaf occasi onal; in colllege - light smoker.; Start: 02-23-2023 Sex Assigned At N [facility] [employer] Other Start: 04-04-2023 End: 04-22-2024 Tobacco smoking status NHIS Never smoked tobacco [facility] Start: 04-04-2023 Alcohol intake Current drinke r of alcohol (finding) [facility] Work Phone: Start: 1960 Sex Assigned At Not on file [facility] Work Phone: Start: 03-25-2023 End: 04-04-2023 Exposure to SARS-CoV-2 (event) Not sure [facility] Start: 1960 Sex Assigned At Male F [facility] Start: 04-22-2024 Sex Male (finding) [facility] Goals Date Patient Goal Desired Activity /State Clinical Notes 10-06-2022 to 04-22-2024 Tremaine Duque MD - 04/04/2023 1:00 PM ESTPatient Instructions Note Date & Type Note Facility 04-22-2024 Procedure note [facility] enter 04-22-2024 History and physi chino note [facility] enter 04-04-2023 History of Present illness Narrative Subjective Eri Gorman is a 62 y.o. male Chief Complaint [...] Rfl: Assessment/Plan 1. Coronary artery disease involving chefornak coronary artery of chefornak heart without angina pectoris No symptoms associate [...] Scribe Attestation By signing my name below, Lyn Reddy LPN, Scribmichel attest that this documentation has been prepared [...] discussion and plan. documented in this encounter [facility] Work Phone: 04-04-2023 Instructions Lyn Lopez LPN [...] as needed only documented in this encounter [facility] Work Phone: 03-05-2023 Evaluation note Encounter Date Diagnosis Assessment Notes Feb, Acute bronchitis due to other specified organisms (ICD-10 - J20.8) Instructed to use Robitussin or Mucinex for cough, saline or Flonase NS for congestion, Tylenol for pain and fever. CXR in 1-2 wks if symptoms fail to improve ER for chest pain or dyspnea [facility] [employer] Other 01-07-2024 Evaluation note* Encounter Date Diagnosis Assessment Notes Treatment Notes Treatment Clinical Notes Feb, Acute bronchitis due to other specified organisms (ICD-10 - J20.8) [facility] [employer] Other 08-25-2023 Evaluation note* Encounter Date Diagnosis Assessment Notes Treatment Notes Treatment Clinical Notes Sep, Strain of left knee, initial encounter (ICD-10 - S86.912A) Quad exercises, ice/heat and Tylenol. Avoid squatting or kneeling Monitor for swelling or increased pain [employer] Other Evaluation [facility]No [facility] [employer] Other Evaluation note* Diagnosis Coronary artery disease involving chefornak coronary artery of chefornak heart without angina pectoris- Primary Essential hypertension Unspecified essential hypertension Mixed hyperlipidemia Never smoked tobacco documented in this encounter [facility] Work Phone: Evaluation note* Diagnosis Onset Date Resolution Status ASHD (arteriosclerotic heart disease) acute Essential hypertension acute Hypercholesterolemia acute Lumbar spondylosis acute Screening PSA (prostate specific antigen) noneactive Welcome to Medicare preventive visit noneactive [facility] Work Phone: Evaluation noteNo assessment information available [facility] Work Phone: History and physical note Author Sonu Blake [facility] Note Date/Time April 22, 2024 8:5 3am [facility] [address] [place] [address] Gastroenterology H&P Signed Patient: Eri Gorman MR#: [id number] : 1960 Acct:[id number] Age/Sex: 63 / M Adm Date: 5 Loc: Room: Type: [facility] Attending Dr: Sonu Blake MD Copies to: DO Sonu Conrad MD~ Date of Service: 04/22/2024 HISTORY & PHYSICAL: Patient's history with special attention to the cardiovascular, pulmonary systems and the current problem was reviewed with the patient immediately prior to the procedure. Present medications and doses reviewed in the EMR. Allergies and pertinent laboratory tests were also reviewedat this time in the EMR. The physical examination, as below, was then performed. Indication, assessment and HPI: 63-year-old man with history of colonic polyps here for surveillance colonoscopy Family history of GI malignancy? No PHYSICAL EXAMINATION General appearance: NAD Skin: No jaundice Head: NC/AT Eyes: Anicteric Neck: Supple Lungs: Normal respiratory effort, no use of accessory muscles Abdomen: nondistended Neuro: Ox3. REVIEW OF SYSTEMS Constitutional: Denies malaise, fevers Cardiovascular: Denies chest pain, palpitations Respiratory: Denies shortness of breath, wheezing Gastrointestinal: As per HPI Genitourinary: Denies dysuria, polyuria Musculoskeletal: Denies joint swelling, joint stiffness Neurological: Denies confusion, numbness, tingling Endocrine: Denies fatigue Written informed consent obtained from the patient. Risks (including but not limited to perforation, infection, bloating, bleeding, need for emergent surgeryand loss of life), benefits and alternatives explained and questions answered. The patient verbalized understanding. Based on history patient is an appropriate candidate for the procedure. Sonu Blake M.D. Documented By: Sonu Blake MD 04/22/24 0852 Signed By: <Electronically signed by Sonu Blake MD> 04/22/24 0853 [facility] Work Phone: History general Narrative - [...] ARTHROPLAS TY) Hospitalization History SEE SURGICAL HX [facility] [employer] Other History of Present illness NarrativePatient returns [...] lifestyle modification exercise and weight loss were advocated.[facility] 250 DO Work Phone: History of Present [...] on management of blood pressure and lipids. -[facility] 250 DO Work Phone: Chief Complaint ERI GORMAN is being seen for a 6 month follow-up of.ERI GORMAN is being seen for a 6 month follow-up of.ERI GORMAN is being seen for a 6 month follow-up of. Family History No Family History Records FoundUnknown Family Member Name Dates Details FH: CABG [...] Unknown Not Specified Heart disease Unknown Unknown Relationship Condition Age at Onset Recorded Date/T gina father Hypertension Unknown Heart disease Unknown Malignant neoplasm Unknown mother Heart disease Unknown Unknown Summary Purpose Advance Directives No Advanced Directives Records Found Advance Directive Response Recorded Date/ Time Advance Directives No March 2:16pm Chief Complaint and Reason for Visit Chief Complaint Wellness Reason for Visit ASHD (arteriosclerot ic heart disease) Essential hypertension Hypercholesterolemia Lumbar spondylosis Screening PSA (prostate specific antigen) Welcome to Medicare preventive visit Chief Complaint C LBP Chief Complaint Admit Date hx of colon polyps April 22, 2024 8:2 7am hx of colon polyps April 22, 2024 8:5 2am Additional Source Comments (unrecognized sect ion and content) No Status Records FoundNo Status Records FoundNo Status Records FoundNo Status Records FoundNo Status Records Found INFORMATION SOURCE (unrecogn ized section and content) DATE CREATED AUTHOR 09/06/2021 [employer] DATE CREATED AUTHOR AUTHOR'S ORGANIZ ATION 02/01/2022 [facility] DATE CREATED AUTHOR AUTHOR'S ORGANIZ ATION 04/12/2023 [facility] DATE CREATED AUTHOR AUTHOR'S ORGANIZ ATION 08/06/2023 [facility] EPIC DATE CREATED AUTHOR AUTHOR'S ORGANIZ ATION 05/03/2024 [facility] REASON FOR VISIT (unrecogniz ed section and content) Reason Comments Annual Exam Care Teams (unrecognized sec tion and content) Alliance Director Relationship Specialty Start Date End Date Casey Gorman DO [address] [place] [address] [address] [facility] [place] [address] PCP - General Internal Medicine 04/04/23 Team Status: Active Member Role Status Dates Casey Gorman DO Primary Care Provider Active Team Status: Inactive Member Role Status Dates Casey Gorman DO Primary Care Provide r, Attending Provider Active Start: June 18, 2023 End: June 18, 2023 Team Status: Inactive Member Role Status Dates Casey Gorman DO Primary Care Provide r, Attending Provider Active Start: November 05, 2023 End: November 05, 2023 Team Status: Inactive Member Role Status Dates Casey Gorman DO Primary Care Provider Active Start: April 22, 2024 End: April 22, 2024 Sonu Blake MD Attending Provider Active Start: April 22, 2024 End: April 22, 2024 Team Status: Active Member Role Status Dates Casey Gorman DO Primary Care Provider Active Start: April 22, 2024 Sonu Blake MD Attending Provider, Other Provider Act robert Start: April 22, 2024 Goals (unrecognized section and content) Goals may [...] BE BASED ON THE PRIMARY CLINICAL RECORDS. [facility] [employer] [facility]. provides no warranty or guarantee of the accuracy or completeness of information in this document.
[2024-06-27 12:51] LABS: Basophils Percent Auto 0.6 % (0.2-2.0); Eosinophils Absolute Auto 0.1 10^3/uL (0.0-0.7); Eosinophils Percent Auto 1.1 % (0.9-7.0); Hematocrit 45.2 % (42.0-54.0); Hemoglobin 15.4 g/dL (14.0-18.0); Immature Granulocytes Abs Auto 0.01 10^3/uL (0.00-0.03); Immature Granulocytes Pct Auto 0.2 % (0.0-0.5); Lymphocytes Absolute Auto 1.6 10^3/uL (1.2-3.8); Lymphocytes Percent Auto 30.6 % (20.5-60.0); Mean Corpuscular HGB Conc 34.1 g/dL (29.9-35.2); Mean Corpuscular Hemoglobin 30.7 pg (25.9-34.0); Mean Platelet Volume 10.1 fL (9.5-13.5); Monocytes Absolute Auto 0.5 10^3/uL (0.3-0.8); Monocytes Percent Auto 9.1 % (1.7-12.0); Neutrophils Absolute Auto 3.1 10^3/uL (1.4-6.5); Neutrophils Percent Auto 58.4 % (43.0-75.0); Platelet Count 200 10^3/uL (150-450); Red Blood Count 5.02 10^6/uL (4.70-6.10); Red Cell Distribution Width 12.9 % (11.0-15.0); White Blood Count 5.4 10^3/uL (4.0-11.0)
[2024-06-27 13:37] LABS: Alanine Aminotransferase 44 U/L (16-63); Albumin Globulin Ratio 1.3; Albumin Level 4.1 g/dL (3.4-5.0); Alkaline Phosphatase 72 U/L (46-116); Anion Gap 7.8; Aspartate Amino Transferase 24 U/L (15-37); BUN Creatinine Ratio 16.5; Bilirubin Total 1.8 mg/dL (0.2-1.0); Calcium 9.2 mg/dL (8.5-10.1); Carbon Dioxide 31.3 mmol/L (21.0-32.0); Chloride 106 mmol/L (98-107); Chol HDL Ratio 2.1; Cholesterol 144 mg/dL (<=200); Estimated GFR (African America >60 (>=60 mL/min/1.73m^2); Estimated GFR (Non-African Ame >60 (>=60 mL/min/1.73m^2); Globulin 3.2 g/dL; Glucose 88 mg/dL (74-106); HDL Cholesterol 67 mg/dL (40-60); Potassium 4.1 mmol/L (3.5-5.1); Sodium 141 mmol/L (136-145); Total Protein 7.3 g/dL (6.4-8.2); Triglycerides 91 mg/dL (<=150); VLDL CHOLESTEROL 18.2 mg/dL
[2024-06-27 13:49] LABS: Prostate Specific Antigen Scrn 1.02 ng/mL (<=4.00)
== END 2024-06-27 12:27 | disposition home or self-care (01) ==
LOC: LAB 12:31
PROVIDERS: PCP Internal Medicine; Visit Provider Internal Medicine
DX: I25.10 Atherosclerotic heart disease of native coronary artery without angina pectoris (principal); E78.00 Pure hypercholesterolemia, unspecified; I10 Essential (primary) hypertension; Z12.5 Encounter for screening for malignant neoplasm of prostate
CPT/HCPCS: 80053; 80061; 85025; G0103